=== PATIENT | female | born 1945 | race Caucasian/White ===

== ENCOUNTER 2018-02-21 20:14 | Emergency (ER) | END 2018-02-21 23:30 | disposition home or self-care (01) ==

== ENCOUNTER → 2018-07-14 | Outpatient (CLI) | payer MEDICARE, OTHER ==
[~2018-07-14] MED LIST: ATOR20TA17; CLOP75TA19; DULO60CA6; ERGO50007; GLIM4TAB55; HYDR-3980 PO; IOHEXOL 100 ML ONE; ISOS120T; METO-335; METOPROLOL 100 MG TAB ONE; NITR0.4T28; NITROGLYCERIN AEROSOL (4.9 GM) ONE; NORT25CA; PIOG1TAB9; SOD CHLORIDE 0.9% 100 ML ONE; VALS320T2
[2018-07-14 10:20] VITALS: BP 118/56; PULSE 67; RESP 20
[2018-07-14 11:00] VITALS: BP 148/71; PULSE 64; RESP 18
[2018-07-14 11:15] VITALS: BP 154/70; PULSE 64; RESP 18
== END | disposition home or self-care (01) ==
LOC: C/S 09:49
PROVIDERS: ATTEND Internal Medicine Interventional Cardiology
DX: R94.39 Abnormal result of other cardiovascular function study (principal); R07.9 Chest pain, unspecified
CPT/HCPCS: 75571; 75574; Q9967

== ENCOUNTER 2018-07-23 16:50 | Inpatient (IN) | payer MEDICARE, OTHER ==
[~2018-07-23] VITALS: Ht 154.9 cm; Wt 86.6 kg
[~2018-07-23 16:50] MED LIST changes: -IOHEXOL 100 ML ONE; -METOPROLOL 100 MG TAB ONE; -NITROGLYCERIN AEROSOL (4.9 GM) ONE; -SOD CHLORIDE 0.9% 100 ML ONE
[2018-07-23] MEDS ORDERED: ASPIRIN 325 MG TAB PO STA (17:28)
[2018-07-23] MEDS ORDERED: ONDANSETRON 4 MG INJ IV STA (17:28)
[2018-07-23] MEDS ORDERED: NITROGLYCERIN 2% 1 GM OINT PKT TD STA (17:28)
[2018-07-23] MEDS ORDERED: morphine 4 MG/ML VIAL IV STA (17:28)
[2018-07-23] MEDS ORDERED: NITROGLYCERIN (SL) 0.4 MG TAB SL PRN (17:30)
--- NOTE | 2018-07-23 17:39 | ERD ---
ER Documentation Chief Complaint Chief Complaint chest pain 1.5 hours ago, took nitro 0.4mg sl no relief HPI This is a 72-year-old female with a history of high cholesterol, hypertension diabetes and coronary stents who had substernal chest pressure radiating to both shoulders and back typical of her angina. The patient took some sublingual nitroglycerin at home but no relief. She had mild shortness of breath no palpitations no nausea no diaphoresis. Patient has had a few days of dyspnea on exertion as well. ROS All systems reviewed and are negative except as per history of present illness. Medications Home Meds Reported Medications Glipizide* (Glipizide*) 10 Mg Tablet, 10 MG PO BID 07/23/18 Isosorbide Mononitrate* (Isosorbide Mononitrate*) 30 Mg Tab.er.24h, 30 MG PO DAILY 07/23/18 Doxepin Hcl* (Doxepin Hcl*) 10 Mg Capsule, 10 MG PO DAILY 07/23/18 Mirabegron (Myrbetriq) 50 Mg Tab.er.24h, 50 MG PO DAILY 07/23/18 Sitagliptin Phos/Metformin HCl (Janumet 50-1,000 mg Tablet) 1 Each Tablet, 1 TAB PO DAILY 07/23/18 Pregabalin* (Lyrica*) 100 Mg Capsule, 100 MG PO BID, CAP 07/23/18 Metoprolol Succinate* (Toprol XL*) 200 Mg Tab.sr.24h, 200 MG PO QAM 07/23/18 Insulin Aspart* (Novolog Insulin Pen*) 100 Unit/Ml Soln, 0 SC .SLIDING SCALE AC, EA 07/23/18 Insulin Detemir (Levemir Flextouch) 100 Unit/1 Ml Insuln.pen, 28-35 UNIT SQ BID, EA 07/23/18 Nitroglycerin* (Nitroglycerin* SL) 0.4 Mg Tab.subl, 0.4 MG SL Q5MIN PRN for CHEST PAIN, BOTTLE 07/23/18 Discontinued Reported Medications Isosorbide Mononitrate* (Imdur*) 120 Mg Tab.sr.24h 04/25/09 Glimepiride* (Amaryl*) 4 Mg Tablet 04/25/09 Ergocalciferol (Vitamin D) 50,000 Unit Capsule 04/25/09 Nitroglycerin (Nitroquick) 0.4 Mg Tab.subl 04/25/09 Valsartan* (Diovan*) 320 Mg Tablet 04/25/09 Metoprolol Succinate* (Toprol XL*) 25 Mg Tab.sr.24h 04/25/09 Atorvastatin (Lipitor) 20 Mg Tablet 04/25/09 Clopidogrel Bisulfate (Plavix) 75 Mg Tablet 04/25/09 Nortriptyline Hcl* (Nortriptyline Hcl*) 25 Mg Capsule 04/25/09 Duloxetine Hcl* (Cymbalta*) 60 Mg Capsule. 04/25/09 Pioglitazone Hcl-Metformin Hcl (Actoplus Met) 1 Tab Tablet 04/25/09 Discontinued Scripts Hydrocodone/Acetaminophen ([place] 10-325 Tablet) 1 Each Tablet, 1 TAB PO Q6H PRN for PAIN, #7 TAB Prov:ELZA CALVILLO 02/21/18 Allergies Allergies: Coded Allergies: calcium (Verified Allergy, Mild, ITCHING, 07/23/18) ergocalciferol (vitamin D2) (Verified Allergy, Mild, ITCHING (FROM OS-ENMANUEL WITH VITAMIN D), 07/23/18) cyanocobalamin (vitamin B12) (Verified Allergy, Unknown, 07/23/18) PMhx/Soc History of Surgery: Yes (. HYSTERECTOMY. . TONSILLECTOMY) Anesthesia Reaction: No Hx Neurological Disorder: Yes (ANXIETY, NERVOUSNESS) Hx Respiratory Disorders: No Hx Cardiac Disorders: Yes (CA, htn, cholesterol, stent placement) Hx Psychiatric Problems: No (anxiety) Hx Miscellaneous Medical Probl: Yes (DM) Hx Alcohol Use: No Hx Substance Use: No Hx Tobacco Use: No Smoking Status: Never smoker FmHx Family History: No coronary disease Physical Exam Vitals Vital Signs Date Temp Pulse Resp B/P (MAP) Pulse Ox O2 O2 Flow FiO2 Time Delivery Rate 07/23/18 Nasal 2 17:52 Cannula 07/23/18 99.6 122 18 132/60 98 16:56 (84) Physical Exam Const: Well-developed, well-nourished Head: Atraumatic, normocephalic Eyes: Normal Conjunctiva, PERRLA, EOMI, normal sclera, no nystagmus ENT: Normal External Ears, Nose and Mouth, moist mucus membranes. Neck: Full range of motion. No meningismus, no lymphadenopathy. Resp: Clear to auscultation bilaterally, no wheezing, rhonchi, rales Cardio: Tachycardia heart rate 108 no murmurs, S1 S2 present Abd: Soft, non tender x 4, non distended. Normal bowel sounds, no guarding or rebound, no pulsitile abdominal masses or bruits Skin: No petechiae or rashes, no ecchymosis , no maculopapular rash Back: No midline or flank tenderness Ext: No cyanosis, or edema, FROM x 4, normal inspection, neurovascularly intact x 4 Neur: Awake and alert, STR 5/5 x 4, sensation intact x 4, no focal findings, cerebellum intact Psych: Normal Mood and Affect Result Diagram: 07/23/18 1735 07/23/18 1735 Results 24 hrs Laboratory Tests Test 07/23/18 17:35 White Blood Count 7.2 10^3/ul Red Blood Count 4.99 10^6/ul Hemoglobin 12.5 g/dl Hematocrit 39.1 % Mean Corpuscular Volume 78.4 fl Mean Corpuscular Hemoglobin 25.1 pg Mean Corpuscular Hemoglobin Concent 32.0 g/dl Red Cell Distribution Width 17.3 % Platelet Count 278 10^3/UL Mean Platelet Volume 10.3 fl Immature Granulocytes % 0.300 % Neutrophils % 65.6 % Lymphocytes % 25.8 % Monocytes % 7.1 % Eosinophils % 0.8 % Basophils % 0.4 % Nucleated Red Blood Cells % 0.0 /100WBC Immature Granulocytes # 0.020 10^3/ul Neutrophils # 4.7 10^3/ul Lymphocytes # 1.9 10^3/ul Monocytes # 0.5 10^3/ul Eosinophils # 0.1 10^3/ul Basophils # 0.0 10^3/ul Nucleated Red Blood Cells # 0.0 10^3/ul Prothrombin Time 13.6 Sec Prothrombin Time Ratio 1.1 INR International Normalized Ratio 1.03 Activated Partial Thromboplast Time 25.8 Sec Sodium Level 135 mmol/L Potassium Level 4.1 mmol/L Chloride Level 98 mmol/L Carbon Dioxide Level 23 mmol/L Anion Gap 14 Blood Urea Nitrogen 18 mg/dl Creatinine 0.68 mg/dl Est Glomerular Filtrat Rate mL/min mL/min Glucose Level 384 mg/dl Calcium Level 9.6 mg/dl Total Bilirubin 0.4 mg/dl Direct Bilirubin 0.00 mg/dl Indirect Bilirubin 0.4 mg/dl Aspartate Amino Transf (AST/SGOT) 19 IU/L Alanine Aminotransferase (ALT/SGPT) 11 IU/L Alkaline Phosphatase 104 IU/L Troponin I 0.037 ng/ml B-Type Natriuretic Peptide 1950 PG/ML Total Protein 7.0 g/dl Albumin 3.9 g/dl Globulin 3.10 g/dl Albumin/Globulin Ratio 1.25 Current Medications Medications Dose Sig/Lee Start Time Status Last (Trade) Ordered Route PRN Stop Time Admin Dose Reason Admin Aspirin 325 mg ONCE STAT 07/23/18 DC (Aspirin) PO 17:28 07/23/18 17:31 1 inch ONCE STAT 07/23/18 DC 07/23/18 Nitroglycerin TD 17:28 07/23/18 17:42 17:31 (Nitroglyceri n 2% Oint) 1 tab Q5M UP TO 3 07/23/18 Nitroglycerin DOSES PRN 17:30 SL .CHEST (Nitroglyceri PAIN n (Sl Tab) 0.4 Mg) Morphine 4 mg ONCE STAT 07/23/18 DC 07/23/18 Sulfate IV 17:28 07/23/18 17:42 (morphine) 17:31 Ondansetron 4 mg ONCE STAT 07/23/18 DC 07/23/18 HCl (Zofran IV 17:28 07/23/18 17:42 Inj) 17:31 Procedures/MDM EKG: Rate/Rhythm: Sinus tachycardia heart rate 118, right bundle branch block QRS, ST, QT: NORMAL HI, QRS, QT] Impression: Abnormal EKG MR #: [id number] DOS: 07/23/18 1728 Ordering MD: SHAWNA JARQUIN DO Location: E/R Room/Bed: PROCEDURE: XR Chest. CLINICAL INDICATION: Chest pain. TECHNIQUE: Chest, 1 view. COMPARISON: 04/25/2009. Cardiac CT 07/14/2018. FINDINGS: The cardiomediastinal silhouette is normal in size. No focal consolidation is seen. No pleural effusion is seen. No definite pneumothorax is seen. No acute osseous abnormality. IMPRESSION: No radiographic evidence of an acute cardiopulmonary process. RPTAT: GG Sammy Robertson Physician Date Time Electronically viewed and signed by Sammy Robertson, Physician on 07/23/2018 18:12 PH/ CC: SHAWNA JARQUIN DO [id number] Cardiac Admit MDM: Patient's symptoms are concerning for cardiac cause will require inpatient workup and continuous monitoring. Further w/u for ischemia, arrhythmia, PE or dissection will be deferred to the inpatient team. Departure Diagnosis: Primary Impression: Chest pain Chest pain type: unspecified Qualified Codes: R07.9 - Chest pain, unspecified Condition: Stable SHAWNA JARQUIN DO Jul 23, 2018 17:39
[2018-07-23] MEDS ORDERED: NITR0.4T32 SL (18:22)
[2018-07-23] MEDS ORDERED: INSU100I27 SQ (18:23)
[2018-07-23] MEDS ORDERED: NOVO3I SC (18:26)
[2018-07-23] MEDS ORDERED: LYRI100 PO (18:26)
[2018-07-23] MEDS ORDERED: METO200T49 PO (18:26)
[2018-07-23] MEDS ORDERED: DOXE10CA PO (18:28)
[2018-07-23] MEDS ORDERED: MIRA50TA PO (18:28)
[2018-07-23] MEDS ORDERED: SITA1TAB5 PO (18:28)
[2018-07-23] MEDS ORDERED: GLIP10TA14 PO (18:28)
[2018-07-23] MEDS ORDERED: ISOS30TA67 PO (18:28)
[2018-07-23] MEDS ORDERED: DEXTROSE 50% 50 ML SYRINGE IV PRN ×2 (19:00)
[2018-07-23] MEDS ORDERED: GLUCOSE GEL 15 GRAM TUBE BUCCAL PRN (19:00)
[2018-07-23] MEDS ORDERED: GLUCAGON 1 MG INJ IM PRN (19:00)
[2018-07-23] MEDS ORDERED: OXYCODONE/ACETAMINOPHEN (5/325) TAB PO PRN (19:00)
[2018-07-23] MEDS ORDERED: NACL 0.9% 3 ML SYG IV SCH (19:00)
[2018-07-23] MEDS ORDERED: GLUCOSE GEL 15 GRAM TUBE PO PRN ×2 (19:00)
--- NOTE | 2018-07-23 19:40 | HP ---
Date/Time of Note Date/Time of Note DATE: 07/23/18 TIME: 19:30 Assessment/Plan VTE Prophylaxis Pharmacological prophylaxis: heparin Lines/Catheters IV Catheter Type (from Nrsg): Saline Lock Assessment/Plan Hospital Course 72 yo female with known CAD, stent 10 years ago, DMII, hypertension presenting with chest pain Chest pain syndrome: - Concerning for ACS in patient with known coronary disease. Initial troponin negaitve. EKG not consistent with STEMI but does show TWI - Will cycle troponins overnight - XR is clear but has obvious JVD/HJR on exam concerning for R sided CHF. Await TTE - D-dimer is below threshold so we can exclude PE. No respiratory symptoms or hypoxia regardless - Can consider stress test, we know her anatomy from recent CT-A - Continue isosorbide, toprol - TTE DMII with hyperglycemia: - Basal/bolus insulin Discharge following cardiac workup Result Diagram: 07/23/18 1735 07/23/18 1735 Results 24hrs Laboratory Tests Test 07/23/18 17:35 White Blood Count 7.2 Red Blood Count 4.99 Hemoglobin 12.5 Hematocrit 39.1 Mean Corpuscular Volume 78.4 L Mean Corpuscular Hemoglobin 25.1 L Mean Corpuscular Hemoglobin Concent 32.0 Red Cell Distribution Width 17.3 H Platelet Count 278 Mean Platelet Volume 10.3 Immature Granulocytes % 0.300 Neutrophils % 65.6 Lymphocytes % 25.8 Monocytes % 7.1 Eosinophils % 0.8 Basophils % 0.4 Nucleated Red Blood Cells % 0.0 Immature Granulocytes # 0.020 Neutrophils # 4.7 Lymphocytes # 1.9 Monocytes # 0.5 Eosinophils # 0.1 Basophils # 0.0 Nucleated Red Blood Cells # 0.0 Prothrombin Time 13.6 Prothrombin Time Ratio 1.1 INR International Normalized Ratio 1.03 Activated Partial Thromboplast Time 25.8 D-Dimer 461.39 H D-Dimer Comment Sodium Level 135 Potassium Level 4.1 Chloride Level 98 Carbon Dioxide Level 23 Anion Gap 14 H Blood Urea Nitrogen 18 Creatinine 0.68 Est Glomerular Filtrat Rate mL/min Glucose Level 384 H Calcium Level 9.6 Total Bilirubin 0.4 Direct Bilirubin 0.00 Indirect Bilirubin 0.4 Aspartate Amino Transf (AST/SGOT) 19 Alanine Aminotransferase (ALT/SGPT) 11 L Alkaline Phosphatase 104 Troponin I 0.037 B-Type Natriuretic Peptide 1950 H Total Protein 7.0 Albumin 3.9 Globulin 3.10 Albumin/Globulin Ratio 1.25 HPI/ROS Admit Date/Time Admit Date/Time Hx of Present Illness 72 yo female with h/o CAD, DMII who presents with CP Patient in usual state of health until today. Since about 7 AM she has had substernal chest pressure, radiating to her arms. She took nitroglycerin at home without relief. Had some nausea as well. Came to ED. Here pain relieved with morphine. Denies shortness of breath. Does feel more swollen than usual, mild orthopnea. She had a CT-A last year showing: Total calcium score: 1557 RCA: Noncalcified plaque in the proximal segment of the vessel produces 50% stenosis. LM: Small plaques do not produce any focal stenosis. LAD: Degraded visualization of the proximal segment due to premature contraction; calcified plaques are present which produce an indeterminate degree of stenosis. Mild - moderate irregularities of the mid and distal segments. LCX: Small plaques in the proximal segment of vessel produce less than 20% stenosis. Mixed plaque in the midsegment of the vessel producing greater than 70% stenosis with distal reference segment of 1.0 mm. OMs: Moderate - severe irregularities of these small caliber vessels measuring less than 1.0 mm. Thickening calcifications of the aortic valve. Recommend echocardiography to exclude aortic stenosis. PMH/Family/Social Past Medical History Medical History: no pertinent history, angina Medications Current Medications Nitroglycerin (Nitroglycerin (Sl Tab) 0.4 Mg) 1 tab Q5M UP TO 3 DOSES PRN SL .CHEST PAIN; Start 07/23/18 at 17:30 IV Flush (NS 3 ml) 3 ml PER PROTOCOL IV ; Start 07/23/18 at 19:00 Oxycodone/ Acetaminophen (Percocet (5/ 325)) 2 tab Q6H PRN PO .SEVERE PAIN 7- 10; Start 07/23/18 at 19:00 Enoxaparin Sodium (Lovenox) 30 mg DAILY SC ; Start 07/24/18 at 09:00 Insulin Glargine (Lantus) 21 units DAILY@2000 SC ; Start 07/23/18 at 20:00 Insulin Aspart (Novolog Insulin Pen) 6 unit WITH MEALS SC ; Start 07/24/18 at 08:00 Insulin Aspart (Novolog Insulin Pen) NOVOLOG *MODERATE* ALGORITHM WITH MEALS BEDTIME SC ; Start 07/23/18 at 21:00 Doxepin HCl (Sinequan) 10 mg DAILY PO ; Start 07/24/18 at 09:00 Isosorbide Mononitrate (Imdur) 30 mg DAILY PO ; Start 07/24/18 at 09:00 Metoprolol Succinate (Toprol Xl) 200 mg QAM PO ; Start 07/24/18 at 09:00 Pregabalin (Lyrica) 100 mg BID PO ; Start 07/23/18 at 21:00 Miscellaneous Information 1 ea NOTE XX ; Start 07/23/18 at 19:00 Glucose (Glutose) 15 gm Q15M PRN PO DECREASED GLUCOSE; Start 07/23/18 at 19:00 Glucose (Glutose) 22.5 gm Q15M PRN PO DECREASED GLUCOSE; Start 07/23/18 at 19:00 Dextrose (D50w Syringe) 25 ml Q15M PRN IV DECREASED GLUCOSE; Start 07/23/18 at 19:00 Dextrose (D50w Syringe) 50 ml Q15M PRN IV DECREASED GLUCOSE; Start 07/23/18 at 19:00 Glucagon (Glucagen) 1 mg Q15M PRN IM DECREASED GLUCOSE; Start 07/23/18 at 19:00 Glucose (Glutose) 15 gm Q15M PRN BUCCAL DECREASED GLUCOSE; Start 07/23/18 at 19 :00 Coded Allergies: calcium (Verified Allergy, Mild, ITCHING, 07/23/18) ergocalciferol (vitamin D2) (Verified Allergy, Mild, ITCHING (FROM OS-ENMANUEL WITH VITAMIN D), 07/23/18) cyanocobalamin (vitamin B12) (Verified Allergy, Unknown, 07/23/18) Past Surgical History Past Surgical Hx: no surgical history Family History Significant Family History: no pertinent family hx Social History Alcohol Use: none Smoking Status: Never smoker Drug Use: none Exam/Review of Systems Vital Signs Vitals Vital Signs Date Temp Pulse Resp B/P (MAP) Pulse Ox O2 O2 Flow FiO2 Time Delivery Rate 07/23/18 105 18 152/72 100 Room Air 18:51 (98) 07/23/18 2 17:52 07/23/18 99.6 16:56 Exam Exam Appears a bit anxious but comfortable and in no distress A0X3 + JVD, + HJR Tachy, regular Lungs clear Abdomen sfot nt No peripheral edema JOHNATHAN BARBA MD Jul 23, 2018 19:40
[2018-07-23] MEDS ORDERED: ONDANSETRON 4 MG INJ IV PRN (20:00)
[2018-07-23] MEDS ORDERED: INSULIN GLARGINE [LANTus] (100 UNITS/ML) SYG SC SCH (20:00)
[2018-07-23] MEDS ORDERED: ACETAMINOPHEN 325 MG TAB PO PRN (20:00)
[2018-07-23] MEDS: INSULIN ASPART [NOVOLOG] 3 ML PEN SC SCH (21:00)
[2018-07-23] MEDS: ATORVASTATIN 80 MG TAB PO SCH (21:00)
[2018-07-24] VITALS (10 sets, daily range): BP systolic 100–169; BP diastolic 52–76; PULSE 66–101; RESP 16–19; Ht 154.9 cm; Wt 86.6 kg
[2018-07-24] MEDS: PREGABALIN 100 MG CAP PO SCH ×3 (03:02→21:28)
[2018-07-24] MEDS: ISOSORBIDE MONONITRATE(SR)30 MG TAB PO SCH (08:44)
[2018-07-24] MEDS: METOPROLOL (XL) 100 MG TAB PO SCH (08:45)
[2018-07-24] MEDS: ASPIRIN 81 MG TAB PO SCH (08:45)
[2018-07-24] MEDS: INSULIN ASPART [NOVOLOG] 3 ML PEN SC SCH ×7 (08:53→21:00)
[2018-07-24] MEDS ORDERED: ENOXAPARIN 30 MG/0.3 ML SYG SC SCH (09:00)
[2018-07-24] MEDS: DOXEPIN 10 MG CAP PO SCH (11:19)
[2018-07-24] MEDS ORDERED: HEPARIN 25000 UNITS/250 ML 250 ML IV SCH (13:00)
[2018-07-24] MEDS: HEPARIN 1000 UNITS/ML 10 ML INJ IV PRN (13:32)
--- NOTE | 2018-07-24 15:18 | PN ---
Date/Time of Note Date/Time of Note DATE: 07/24/18 TIME: 15:16 Assessment/Plan VTE Prophylaxis Risk score (from Nsg)>0 risk: 4 SCD applied (from Nsg): Yes Pharmacological prophylaxis: heparin Lines/Catheters IV Catheter Type (from Nrsg): Saline Lock Assessment/Plan Hospital Course 72 yo female with known CAD, stent 10 years ago, DMII, hypertension presenting with chest pain, found to have NSTEMI NSTEMI: - Troponin came back elevated - Continue aspirin and heparin drip, atorva 80 - Dr Zendejas consulted for consideration of [facility] - Continue isosorbide, toprol - TTE DMII with hyperglycemia: - Sugars remain quite elevated. Will increase dosing of basal/bolus insulin Discharge to self care following cardiac management Result Diagram: 07/24/18 1252 07/24/18 0515 Results 24hrs Laboratory Tests Test 07/23/18 17:35 07/23/18 20:36 07/23/18 22:00 07/24/18 01:59 White Blood Count 7.2 Red Blood Count 4.99 Hemoglobin 12.5 Hematocrit 39.1 Mean Corpuscular 78.4 L Volume Mean Corpuscular 25.1 L Hemoglobin Mean Corpuscular 32.0 Hemoglobin Concent Red Cell 17.3 H Distribution Width Platelet Count 278 Mean Platelet Volume 10.3 Immature 0.300 Granulocytes % Neutrophils % 65.6 Lymphocytes % 25.8 Monocytes % 7.1 Eosinophils % 0.8 Basophils % 0.4 Nucleated Red Blood 0.0 Cells % Immature 0.020 Granulocytes # Neutrophils # 4.7 Lymphocytes # 1.9 Monocytes # 0.5 Eosinophils # 0.1 Basophils # 0.0 Nucleated Red Blood 0.0 Cells # Prothrombin Time 13.6 Prothrombin Time 1.1 Ratio INR International 1.03 Normalized Ratio Activated 25.8 Partial Thromboplast Time D-Dimer 461.39 H D-Dimer Comment Sodium Level 135 Potassium Level 4.1 Chloride Level 98 Carbon Dioxide Level 23 Anion Gap 14 H Blood Urea Nitrogen 18 Creatinine 0.68 Est Glomerular Filtrat Rate mL/min Glucose Level 384 H Calcium Level 9.6 Total Bilirubin 0.4 Direct Bilirubin 0.00 Indirect Bilirubin 0.4 Aspartate Amino 19 Transf (AST/SGOT) Alanine 11 L Aminotransferase (AL T/SGPT) Alkaline Phosphatase 104 Troponin I 0.037 0.275 *H B-Type Natriuretic 1950 H Peptide Total Protein 7.0 Albumin 3.9 Globulin 3.10 Albumin/Globulin 1.25 Ratio Bedside Glucose 240 H 299 H Test 07/24/18 05:15 07/24/18 08:43 07/24/18 12:11 07/24/18 12:52 White Blood Count 5.6 # 7.3 # Red Blood Count 4.46 4.62 Hemoglobin 11.4 L 11.7 L Hematocrit 35.3 L 37.1 Mean Corpuscular 79.1 L 80.3 L Volume Mean Corpuscular 25.6 L 25.3 L Hemoglobin Mean Corpuscular 32.3 31.5 L Hemoglobin Concent Red Cell 17.5 H 17.8 H Distribution Width Platelet Count 205 # 300 # Mean Platelet Volume 10.4 10.5 H Immature 0.200 0.300 Granulocytes % Neutrophils % 51.0 58.6 Lymphocytes % 39.0 32.1 Monocytes % 7.2 6.2 Eosinophils % 2.2 2.2 Basophils % 0.4 0.6 Nucleated Red Blood 0.0 0.0 Cells % Immature 0.010 0.020 Granulocytes # Neutrophils # 2.8 4.3 Lymphocytes # 2.2 2.3 Monocytes # 0.4 0.5 Eosinophils # 0.1 0.2 Basophils # 0.0 0.0 Nucleated Red Blood 0.0 0.0 Cells # Sodium Level 138 Potassium Level 4.1 Chloride Level 101 Carbon Dioxide Level 29 Anion Gap 8 Blood Urea Nitrogen 20 Creatinine 0.69 Est Glomerular Filtrat Rate mL/min Glucose Level 290 H Hemoglobin A1c 14.0 H Calcium Level 9.3 Total Bilirubin 0.3 Direct Bilirubin 0.00 Indirect Bilirubin 0.3 Aspartate Amino 26 Transf (AST/SGOT) Alanine 15 Aminotransferase (AL T/SGPT) Alkaline Phosphatase 83 Troponin I 0.490 *H Total Protein 5.9 #L Albumin 3.2 L Globulin 2.70 Albumin/Globulin 1.18 Ratio Bedside Glucose 289 H 193 Prothrombin Time 13.3 Prothrombin Time 1.0 Ratio INR International 1.00 Normalized Ratio Activated 25.6 Partial Thromboplast Time Subjective 24 Hr Interval Summary Free Text/Dictation Troponin is positive, started on heparin drip Her chest symptoms have resolved Exam/Review of Systems Exam Vitals Vital Signs Date Temp Pulse Resp B/P (MAP) Pulse Ox O2 O2 Flow FiO2 Time Delivery Rate 07/24/18 88 12:34 07/24/18 98.5 17 100/55 98 11:54 (70) 07/24/18 Room Air 00:11 07/23/18 2 17:52 Intake and Output 07/23/18 07/23/18 07/24/18 1515:00 23:00 07:00 IntakeIntake Total 400 ml BalanceBalance 400 ml Constitutional: alert, oriented, well developed Psych: no complaints, nl mood/affect Head: normocephalic, atraumatic Eyes: nl conjunctiva, EOMI, nl lids, nl sclera, PERRL ENMT: nl external ears & nose, nl lips & teeth, nl nasal mucosa & septum Neck: supple, non-tender Respiratory: clear to auscultation, normal air movement Cardiovascular: regular rate and rhythm, nl pulses Gastrointestinal: soft, nl liver, spleen, non-tender Musculoskeletal: nl extremities to inspection, nl gait and stance Extremities: normal pulses Neurological: [employer] II-XII intact, nl mental status, nl speech, nl strength Skin: nl turgor; No rash or lesions Lymph: nl lymph nodes Results Results 24hrs Laboratory Tests Test 07/23/18 17:35 07/23/18 20:36 07/23/18 22:00 07/24/18 01:59 White Blood Count 7.2 Red Blood Count 4.99 Hemoglobin 12.5 Hematocrit 39.1 Mean Corpuscular 78.4 L Volume Mean Corpuscular 25.1 L Hemoglobin Mean Corpuscular 32.0 Hemoglobin Concent Red Cell 17.3 H Distribution Width Platelet Count 278 Mean Platelet Volume 10.3 Immature 0.300 Granulocytes % Neutrophils % 65.6 Lymphocytes % 25.8 Monocytes % 7.1 Eosinophils % 0.8 Basophils % 0.4 Nucleated Red Blood 0.0 Cells % Immature 0.020 Granulocytes # Neutrophils # 4.7 Lymphocytes # 1.9 Monocytes # 0.5 Eosinophils # 0.1 Basophils # 0.0 Nucleated Red Blood 0.0 Cells # Prothrombin Time 13.6 Prothrombin Time 1.1 Ratio INR International 1.03 Normalized Ratio Activated 25.8 Partial Thromboplast Time D-Dimer 461.39 H D-Dimer Comment Sodium Level 135 Potassium Level 4.1 Chloride Level 98 Carbon Dioxide Level 23 Anion Gap 14 H Blood Urea Nitrogen 18 Creatinine 0.68 Est Glomerular Filtrat Rate mL/min Glucose Level 384 H Calcium Level 9.6 Total Bilirubin 0.4 Direct Bilirubin 0.00 Indirect Bilirubin 0.4 Aspartate Amino 19 Transf (AST/SGOT) Alanine 11 L Aminotransferase (AL T/SGPT) Alkaline Phosphatase 104 Troponin I 0.037 0.275 *H B-Type Natriuretic 1950 H Peptide Total Protein 7.0 Albumin 3.9 Globulin 3.10 Albumin/Globulin 1.25 Ratio Bedside Glucose 240 H 299 H Test 07/24/18 05:15 07/24/18 08:43 07/24/18 12:11 07/24/18 12:52 White Blood Count 5.6 # 7.3 # Red Blood Count 4.46 4.62 Hemoglobin 11.4 L 11.7 L Hematocrit 35.3 L 37.1 Mean Corpuscular 79.1 L 80.3 L Volume Mean Corpuscular 25.6 L 25.3 L Hemoglobin Mean Corpuscular 32.3 31.5 L Hemoglobin Concent Red Cell 17.5 H 17.8 H Distribution Width Platelet Count 205 # 300 # Mean Platelet Volume 10.4 10.5 H Immature 0.200 0.300 Granulocytes % Neutrophils % 51.0 58.6 Lymphocytes % 39.0 32.1 Monocytes % 7.2 6.2 Eosinophils % 2.2 2.2 Basophils % 0.4 0.6 Nucleated Red Blood 0.0 0.0 Cells % Immature 0.010 0.020 Granulocytes # Neutrophils # 2.8 4.3 Lymphocytes # 2.2 2.3 Monocytes # 0.4 0.5 Eosinophils # 0.1 0.2 Basophils # 0.0 0.0 Nucleated Red Blood 0.0 0.0 Cells # Sodium Level 138 Potassium Level 4.1 Chloride Level 101 Carbon Dioxide Level 29 Anion Gap 8 Blood Urea Nitrogen 20 Creatinine 0.69 Est Glomerular Filtrat Rate mL/min Glucose Level 290 H Hemoglobin A1c 14.0 H Calcium Level 9.3 Total Bilirubin 0.3 Direct Bilirubin 0.00 Indirect Bilirubin 0.3 Aspartate Amino 26 Transf (AST/SGOT) Alanine 15 Aminotransferase (AL T/SGPT) Alkaline Phosphatase 83 Troponin I 0.490 *H Total Protein 5.9 #L Albumin 3.2 L Globulin 2.70 Albumin/Globulin 1.18 Ratio Bedside Glucose 289 H 193 Prothrombin Time 13.3 Prothrombin Time 1.0 Ratio INR International 1.00 Normalized Ratio Activated 25.6 Partial Thromboplast Time Medications Medication Current Medications Nitroglycerin (Nitroglycerin (Sl Tab) 0.4 Mg) 1 tab Q5M UP TO 3 DOSES PRN SL .CHEST PAIN; Start 07/23/18 at 17:30 IV Flush (NS 3 ml) 3 ml PER PROTOCOL IV ; Start 07/23/18 at 19:00 Oxycodone/ Acetaminophen (Percocet (5/ 325)) 2 tab Q6H PRN PO .SEVERE PAIN 7-10 Last administered on 07/24/18at 11:45; Admin Dose 2 TAB; Start 07/23/18 at 19:00 Insulin Glargine (Lantus) 21 units DAILY@2000 SC Last administered on 07/23/18 20:39; Admin Dose 21 UNITS; Start 07/23/18 at 20:00 Insulin Aspart (Novolog Insulin Pen) 6 unit WITH MEALS SC Last administered on 07/24/18 12:18; Admin Dose 6 UNIT; Start 07/24/18 at 07:55 Insulin Aspart (Novolog Insulin Pen) NOVOLOG *MODERATE* ALGORITHM WITH MEALS BEDTIME SC Last administered on 07/24/18 12:19; Admin Dose 4 UNIT; Start 07/23/18 at 21:00 Doxepin HCl (Sinequan) 10 mg DAILY PO Last administered on 07/24/18 11:19; Admin Dose 10 MG; Start 07/24/18 at 09:00 Isosorbide Mononitrate (Imdur) 30 mg DAILY PO Last administered on 07/24/18at 08:44; Admin Dose 30 MG; Start 07/24/18 at 09:00 Metoprolol Succinate (Toprol Xl) 200 mg QAM PO Last administered on 07/24/18at 08:45; Admin Dose 200 MG; Start 07/24/18 at 09:00 Pregabalin (Lyrica) 100 mg BID PO Last administered on 07/24/18 08:46; Admin Dose 100 MG; Start 07/23/18 at 21:00 Miscellaneous Information 1 ea NOTE XX ; Start 07/23/18 at 19:00 Glucose (Glutose) 15 gm Q15M PRN PO DECREASED GLUCOSE; Start 07/23/18 at 19:00 Glucose (Glutose) 22.5 gm Q15M PRN PO DECREASED GLUCOSE; Start 07/23/18 at 19:00 Dextrose (D50w Syringe) 25 ml Q15M PRN IV DECREASED GLUCOSE; Start 07/23/18 at 1 9:00 Dextrose (D50w Syringe) 50 ml Q15M PRN IV DECREASED GLUCOSE; Start 07/23/18 at 19:00 Glucagon (Glucagen) 1 mg Q15M PRN IM DECREASED GLUCOSE; Start 07/23/18 at 19:00 Glucose (Glutose) 15 gm Q15M PRN BUCCAL DECREASED GLUCOSE; Start 07/23/18 at 19:00 Aspirin (Aspirin) 81 mg DAILY PO Last administered on 07/24/18at 08:45; Admin Dose 81 MG; Start 07/24/18 at 09:00 Atorvastatin Calcium (Lipitor) 80 mg HS PO ; Start 07/23/18 at 21:00 Heparin Sodium (Porcine) (Heparin (1000 Units/ml)) 4,000 unit PER PROTOCOL PRN IV aPTT<47 Last administered on 07/24/18at 13:32; Admin Dose 4,000 UNIT; Start 07/24/18 at 13:00 Heparin Sodium (Porcine) 250 ml @ 10 mls/hr PER PROTOCOL IV Last administered on 07/24/18at 13:35; Admin Dose 10 MLS/HR; Start 07/24/18 at 13:00 JOHNATHAN BARBA MD Jul 24, 2018 15:18
--- NOTE | 2018-07-24 18:30 | RADRPT ---
Echocardiogram Report Patient Name: Ruba SIFUENTEStient ID: [id number] : 1945 (72y 9m)Study Date: 07/24/2018 9:05:01 AM Gender: FAccession #: [id number] Tech: ARY Location: Ref.Physician: JOHNATHAN BARBA Height(Cm): BSA: Weight(Kg): Quality: Technically Difficult StudyAccount #: Procedures: Echocardiographic Report: Transthoracic echocardiogram with complete 2D, M-Mode, and doppler examination. Indications: Congestive Heart Failure. Measurements: 2D/M Mode Doppler Measurement Value Normal Range Measurement Value Normal Range LVIDd 2D 4.7 [ 3.8 - 5.2 ] cm AREN Vmax 1.3 [ 2.0 - 4.0 ] cm2 LVIDs 2D 3.3 [ 2.2 - 3.5 ] cm AREN VTI 1.4 [ 2.0 - 4.0 ] cm2 LVPWd 2D 1.4 [ 0.6 - 0.9 ] cm AV Mean Dav 1.4 [ 70.0 - 90.0 ] cm/sec IVSd 2D 1.4 [ 0.6 - 0.9 ] cm AV Mean PG 9.0 [ 2.0 - 4.0 ] mmHg IVS/LVPW 2D 1.0 ratio AV Peak Dav 1.9 [ 100.0 - 170.0 ] cm/sec LVOT Diam 1.8 [ 2.1 - 2.5 ] cm AV Peak PG 14.0 [ 2.0 - 9.0 ] mmHg LVOT Area 2.5 cm2 AV VTI 31.6 cm LVOT Mean Dav 0.8 [ 60.0 - 80.0 ] cm/sec LVOT Mean PG 3.0 [ 1.0 - 3.0 ] mmHg LVOT Peak Dav 1.0 [ 70.0 - 110.0 ] cm/sec LVOT Peak PG 4.0 [ 2.0 - 6.0 ] mmHg LVOT VTI 17.1 [ 20.0 - 30.0 ] cm MV E Peak Dav 0.7 [ 60.0 - 130.0 ] cm/sec MV A Peak Dav 1.3 [ 100.0 - 120.0 ] cm/sec MV E/A 0.5 [ 0.8 - 1.5 ] ratio MV Decel Time 211 [ 104 - 258 ] msec Lat E` Dav 0.0 [ 10.0 - 15.0 ] cm/sec Med E` Dav 0.0 cm/sec MV E/A 0.5 [ 0.8 - 1.5 ] ratio PV Peak Dav 0.9 [ 40.0 - 80.0 ] cm/sec PV Peak PG 3.0 mmHg Findings: Left Ventricle: Normal left ventricular systolic function. Normal left ventricular cavity size. Mild-moderate concentric left ventricular hypertrophy. Ejection fraction is visually estimated at 60-65 %. Tissue Doppler/Mitral Doppler indices are consistent with impaired relaxation (Stage I diastolic dysfunction). Right Ventricle: Normal right ventricular size. Normal right ventricular systolic function. Left Atrium: There is mild enlargement of left atrium. Right Atrium: The right atrium is normal in size. Mitral Valve: Normal appearance of the mitral valve. Mild mitral leaflet calcification. Mild mitral annular calcification. There is trace to mild mitral valve regurgitation. Aortic Valve: Aortic valve not well visualized. Aortic sclerosis without significant stenosis. Aortic cusps appear mildly calcified. Trace aortic valve regurgitation. Tricuspid Valve: Normal appearance and function of the tricuspid valve with trace physiologic regurgitation. Pulmonic Valve: Pulmonic valve not well visualized. Pericardium: Normal pericardium with no significant pericardial effusion. Aorta: Normal aortic root. IVC: Normal size and normal respiratory collapse consistent with normal right atrial pressure. Conclusions: Normal left ventricular systolic function. Normal left ventricular cavity size. Mild-moderate concentric left ventricular hypertrophy. Ejection fraction is visually estimated at 60-65 %. Tissue Doppler/Mitral Doppler indices are consistent with impaired relaxation (Stage I diastolic dysfunction). There is mild enlargement of left atrium. Normal appearance of the mitral valve. Mild mitral leaflet calcification. Mild mitral annular calcification. There is trace to mild mitral valve regurgitation. Aortic valve not well visualized. Aortic sclerosis without significant stenosis by gradient asessment. Aortic cusps appear mildly calcified. Trace aortic valve regurgitation. Normal appearance and function of the tricuspid valve with trace physiologic regurgitation. Electronically Signed By: Ad Zendejas 2018-07-24 18:29:12 PDT
[2018-07-24] MEDS ORDERED: INSULIN GLARGINE [LANTus] (100 UNITS/ML) SYG SC SCH (20:00)
[2018-07-24] MEDS: ATORVASTATIN 80 MG TAB PO SCH (21:28)
[2018-07-25] VITALS (20 sets, daily range): BP systolic 122–170; BP diastolic 44–94; PULSE 69–89; RESP 16–18
[2018-07-25] MEDS ORDERED: DIAZEPAM 5 MG TAB PO ONE (07:00)
[2018-07-25] MEDS ORDERED: DIPHENHYDRAMINE 50 MG CAP PO ONE (07:00)
[2018-07-25] MEDS: HEPARIN 1000 UNITS/ML 10 ML INJ IV PRN (07:14)
[2018-07-25] MEDS: INSULIN ASPART [NOVOLOG] 3 ML PEN SC SCH ×7 (07:55→20:45)
[2018-07-25] MEDS: PREGABALIN 100 MG CAP PO SCH ×3 (07:57→20:36)
[2018-07-25] MEDS: METOPROLOL (XL) 100 MG TAB PO SCH ×2 (07:57→11:04)
[2018-07-25] MEDS: ASPIRIN 81 MG TAB PO SCH ×3 (07:58→11:09)
[2018-07-25] MEDS: DOXEPIN 10 MG CAP PO SCH ×2 (07:58→11:04)
[2018-07-25] MEDS: ISOSORBIDE MONONITRATE(SR)30 MG TAB PO SCH ×2 (07:58→11:05)
[2018-07-25] MEDS ORDERED: HEPARIN 1000 UNITS/ML 10 ML INJ ONE (09:26)
[2018-07-25] MEDS ORDERED: MIDAZOLAM 1 MG/ML 2 ML INJ ONE (09:26)
[2018-07-25] MEDS ORDERED: LIDOCAINE 1% (MDV) 20 ML INJ ONE (09:26)
[2018-07-25] MEDS ORDERED: IODIXANOL LOCM 100 ML BTL ONE (09:26)
[2018-07-25] MEDS ORDERED: FENTAnyl 50 MCG/ML VIAL ONE (09:27)
[2018-07-25] MEDS ORDERED: VERAPAMIL 5 MG INJ ONE (09:27)
[2018-07-25] MEDS ORDERED: NITROGLYCERIN (IC) 100 MCG/ML INJ ONE (10:04)
[2018-07-25] MEDS ORDERED: SOD CHLORIDE 0.9% 1,000 ML IV SCH (10:39)
--- NOTE | 2018-07-25 10:45 | SIPON ---
Date/Time of Note Date/Time of Note DATE: 07/25/18 TIME: 10:44 Operative Report Preoperative Diagnosis 1.Nstemi Postoperative Diagnosis 1.obstructive cad multivessel Operation/Procedure Performed 1.[facility] Surgeon see signature line title i instructional assistant 1.Albert Anesthesia: moderate sedation Estimated blood loss: minimal Transfusion Required none Specimen none Grafts/Implants none Complications none CRISTINA RAUSCH Jul 25, 2018 10:45
[2018-07-25] MEDS ORDERED: ONDANSETRON 4 MG INJ IV PRN (11:00)
[2018-07-25] MEDS ORDERED: AL HYDROX/MG HYDROX/SIMETH 30 ML CUP PO PRN (11:00)
--- NOTE | 2018-07-25 14:16 | CONS ---
Assessment/Plan Assessment/Plan Hospital Course (Demo Recall) IMP: 1.Nstemi-s/p C today with multivessel obstructive cad. Echo this admit with NL EF and no sig vakle abnl 2.Chest pain-secondary to number 1 3.HTN 4.HL 5.DM Recc: -Tele-serial ecg's -Continue BB/ASA/statin -Continue imdur -Will have CT surgical consult for consideration of cabg versus multivessel stenting Consultation Date/Type/Reason Admit Date/Time Jul 25, 2018 at 06:38 Initial Consult Date 07/25/18 Type of Consult Cardiology Reason for Consultation Nstemi Requesting Provider: JOHNATHAN BARBA MD Date/Time of Note DATE: 07/25/18 TIME: 14:13 Exam/Review of Systems Vital Signs Vitals Vital Signs Date Temp Pulse Resp B/P (MAP) Pulse Ox O2 O2 Flow FiO2 Time Delivery Rate 07/25/18 77 18 159/56 98 Room Air 13:54 (90) 07/25/18 98.5 10:50 07/23/18 2 17:52 Intake and Output 07/24/18 07/24/18 07/25/18 1414:59 22:59 06:59 IntakeIntake Total 500 ml 500 ml BalanceBalance 500 ml 500 ml Exam Exam Review of Systems: CONSTITUTIONAL: No fevers, chills. PULMONARY: No sob CARDIOVASCULAR:intermittent chest pain GASTROINTESTINAL: No nausea/vomiting. GENITOURINARY: No hematuria/dysuria. MUSCULOSKELETAL: No myagias/arthalgias. PSYCHIATRIC: The patient denies depression. NEUROLOGIC: No weakness Constitutional: alert Psych: no complaints Head: normocephalic ENMT: mucosa pink and moist Neck: supple, jvd (9 cm water) Respiratory: diminished breath sounds Cardiovascular: regular rate and rhythm Gastrointestinal: soft, non-tender Musculoskeletal: muscle tone (normal) Extremities: edema (none) Neurological: other (No focal deficits) Labs Result Diagram: 07/25/18 0548 07/25/18 0548 Results 24hrs Laboratory Tests Test 07/24/18 17:08 07/24/18 19:03 07/24/18 19:06 07/24/18 21:24 Bedside Glucose 198 142 Activated 52.6 H Partial Thromboplast Time Prothrombin Time 14.1 Prothrombin Time 1.1 Ratio INR International 1.08 Normalized Ratio Test 07/25/18 05:48 07/25/18 07:53 07/25/18 11:13 White Blood Count 6.9 Red Blood Count 4.67 Hemoglobin 11.7 L Hematocrit 37.9 Mean Corpuscular 81.2 L Volume Mean Corpuscular 25.1 L Hemoglobin Mean Corpuscular 30.9 L Hemoglobin Concent Red Cell 17.5 H Distribution Width Platelet Count 252 Mean Platelet Volume 10.4 Immature 0.300 Granulocytes % Neutrophils % 53.6 Lymphocytes % 36.6 Monocytes % 6.0 Eosinophils % 2.8 Basophils % 0.7 Nucleated Red Blood 0.0 Cells % Immature 0.020 Granulocytes # Neutrophils # 3.7 Lymphocytes # 2.5 Monocytes # 0.4 Eosinophils # 0.2 Basophils # 0.1 Nucleated Red Blood 0.0 Cells # Prothrombin Time 13.1 Prothrombin Time 1.0 Ratio INR International 0.98 Normalized Ratio Activated 31.1 Partial Thromboplast Time Sodium Level 135 Potassium Level 4.5 Chloride Level 100 Carbon Dioxide Level 25 Anion Gap 10 Blood Urea Nitrogen 30 H Creatinine 0.75 Est Glomerular Filtrat Rate mL/min Glucose Level 356 H Calcium Level 9.4 Triglycerides Level 237 H Bedside Glucose 370 H 302 H Medications Medications Current Medications Nitroglycerin (Nitroglycerin (Sl Tab) 0.4 Mg) 1 tab Q5M UP TO 3 DOSES PRN SL .CHEST PAIN; Start 07/23/18 at 17:30 IV Flush (NS 3 ml) 3 ml PER PROTOCOL IV ; Start 07/23/18 at 19:00 Oxycodone/ Acetaminophen (Percocet (5/ 325)) 2 tab Q6H PRN PO .SEVERE PAIN 7-10 Last administered on 07/24/18at 11:45; Admin Dose 2 TAB; Start 07/23/18 at 19:00 Insulin Aspart (Novolog Insulin Pen) NOVOLOG *MODERATE* ALGORITHM WITH MEALS BEDTIME SC Last administered on 07/25/18at 11:28; Admin Dose 10 UNIT; Start 07/23/18 at 21:00 Doxepin HCl (Sinequan) 10 mg DAILY PO Last administered on 07/25/18 11:04; Admin Dose 10 MG; Start 07/24/18 at 09:00 Isosorbide Mononitrate (Imdur) 30 mg DAILY PO Last administered on 07/25/18at 11:05; Admin Dose 30 MG; Start 07/24/18 at 09:00 Metoprolol Succinate (Toprol Xl) 200 mg QAM PO Last administered on 07/25/18at 11:04; Admin Dose 200 MG; Start 07/24/18 at 09:00 Pregabalin (Lyrica) 100 mg BID PO Last administered on 07/25/18 11:06; Admin Dose 100 MG; Start 07/23/18 at 21:00 Miscellaneous Information 1 ea NOTE XX ; Start 07/23/18 at 19:00 Glucose (Glutose) 15 gm Q15M PRN PO DECREASED GLUCOSE; Start 07/23/18 at 19:00 Glucose (Glutose) 22.5 gm Q15M PRN PO DECREASED GLUCOSE; Start 07/23/18 at 19:00 Dextrose (D50w Syringe) 25 ml Q15M PRN IV DECREASED GLUCOSE; Start 07/23/18 at 19:00 Dextrose (D50w Syringe) 50 ml Q15M PRN IV DECREASED GLUCOSE; Start 07/23/18 at 19:00 Glucagon (Glucagen) 1 mg Q15M PRN IM DECREASED GLUCOSE; Start 07/23/18 at 19:00 Glucose (Glutose) 15 gm Q15M PRN BUCCAL DECREASED GLUCOSE; Start 07/23/18 at 19:00 Aspirin (Aspirin) 81 mg DAILY PO Last administered on 07/24/18at 08:45; Admin Dose 81 MG; Start 07/24/18 at 09:00 Atorvastatin Calcium (Lipitor) 80 mg HS PO Last administered on 07/24/18at 21:28; Admin Dose 80 MG; Start 07/23/18 at 21:00 Insulin Aspart (Novolog Insulin Pen) 10 unit WITH MEALS SC Last administered on 07/25/18at 11:42; Admin Dose 10 UNIT; Start 07/24/18 at 17:55 Insulin Glargine (Lantus) 30 units DAILY@2000 SC Last administered on 07/24/18at 21:41; Admin Dose 30 UNITS; Start 07/24/18 at 20:00 Al Hydrox/Mg Hydrox/Simethicone (Mag-Al Plus) 30 ml Q4H PRN PO GASTROINTESTINAL UPSET; Start 07/25/18 at 11:00 Ondansetron HCl (Zofran Inj) 4 mg Q4H PRN IV NAUSEA AND/OR VOMITING; Start 07/25/18 at 11:00 Sodium Chloride 1,000 ml @ 75 mls/hr [id number] IV Last administered on 07/25/18at 10:55; Admin Dose 75 MLS/HR; Start 07/25/18 at 10:39; Stop 07/25/18 at 15:38 CRISTINA RAUSCH Jul 25, 2018 14:16
--- NOTE | 2018-07-25 14:54 | CARRPT ---
DATE OF PROCEDURE: 07/25/2018 TYPE OF PROCEDURES: 1. Left heart catheterization. 2. Coronary angiography. 3. Measurement of left end diastolic pressure. ATTENDING PHYSICIAN: Cristina Zendejas MD REFERRING PHYSICIAN: Pritesh Melton MD, from the hospitalist service. INDICATION: Non-ST myocardial infarction. TYPE OF ANESTHESIA: Conscious and local. BRIEF HISTORY: Ms. Javier is a 72-year-old female with a history of hypertension, dyslipidemia, diabetes mellitus, who presented with complaints of substernal chest pain. The patient was subsequen tly ruled in for [id number]-MF-[id number] myocardial infarction; therefore was brought to the cardiac cath la b in order to assess for possibility of significant obstructive coronary artery disease lending sympt oms of chest pain and subsequent non-ST elevation myocardial infarction. DESCRIPTION OF PROCEDURE: After informed consent was obtained, the patient was brought into the [facility] cardiac fence laborer where her right radial area was prepped and draped in steri le fashion. A 2% lidocaine was infiltrated into right radial area in order to achieve adequate anest hesia. Using the modified Seldinger technique, the radial artery was cannulated and a 6-Martiniquais arter ial sheath was placed. A 6-Martiniquais JL3.5 catheter was used to cannulate the left main coronary ostium . With contrast injection, multiple views of the left coronary arterial system were obtained. JL3.5 was removed over a guidewire and a JR4 were used to cannulate the right coronary arterial ostium. W ith contrast injection, multiple views of the right coronary arterial system were obtained. JL4 was removed over a guidewire and a 6-Martiniquais pigtail was passed down the ascending aorta and placed in LV. LVEDP was measured and pullback across the aortic valve to assess for significant gradient and beth omero. Subsequently, this completed procedure. There were no noted complications. FINDINGS: Coronary angiography: Left main is 4 mm, no significant focal stenoses. Circumflex proxi rhonda is a 3 mm vessel and has a midbody 50% stenosis. The circumflex continuation AV groove ____ co vers the [place] has a diffuse 70% to 80% stenosis. The patient's LAD proximally is a 3 mm vessel and in its midportion has a very focal 70% to 80% stenosis and then in the very distal por tions of the apex, she has another focal 80% to 90% stenosis. There is mid branching diagonal, 2 mm with no significant focal stenoses. The patient's right coronary artery proximally is 3.5 mm vessel and in its midportion has 95% stenosis. Right coronary artery is dominant vessel and therefore gives off a small PDA sub 2 mm vessel with no significant focal stenoses and ____ posterolateral branch is 2.5 mm then splits into daughter branches with the second superior branch having very tight 95% sten osis. Measurement of LVEDP of 31. No significant aortic stenosis by gradient. TOTAL FLUOROSCOPY TIME: 4.1 minutes. TOTAL CONTRAST: 50 mL. IMPRESSION: Multivessel obstructive coronary artery disease involving a high-grade stenosis of the p atient's mid right coronary artery, mid and distal lesions in the patient's LAD and a diffusely disea sed circumflex branch. RECOMMENDATIONS: Given the findings: 1. The patient should be considered for possible coronary artery bypass graft surgery versus multive ssel PCI and thus we will consult cardiac surgery. 2. Maximize medical management. 3. Aggressive risk factor reduction. Dictated By: CRISTINA IQBAL/NTS Conf#: [id number] DID#: [id number] CC: PRITESH MELTON MD;*EndCC*
[2018-07-25] MEDS ORDERED: ATOR-2 PO (15:57)
[2018-07-25] MEDS ORDERED: ASPI-831 PO (15:57)
--- NOTE | 2018-07-25 17:47 | PN ---
Date/Time of Note Date/Time of Note DATE: 07/25/18 TIME: 17:44 Assessment/Plan VTE Prophylaxis Risk score (from Nsg)>0 risk: 7 SCD applied (from Nsg): Yes Pharmacological prophylaxis: heparin Lines/Catheters IV Catheter Type (from Nrsg): Peripheral IV Urinary Cath still in place: No Assessment/Plan Hospital Course 72 yo female with known CAD, stent 10 years ago, DMII, hypertension presenting with chest pain, found to have NSTEMI NSTEMI: -Status post left cath with Multivessel obstructive coronary artery disease involving a high-grade stenosis of the patient's mid right coronary artery, mid and distal lesions in the patient's LAD and a diffusely diseased circumflex branch -Patient PCI tomorrow but may need a CABG if unable to place stent - Continue aspirin, statin and heparin drip DMII with hyperglycemia: Out of control -A1c at 14 - Sugars remain quite elevated. Will increase dosing of basal/bolus insulin Prophylaxis: Heparin DC planning: PCI tomorrow otherwise family would like to transfer to [facility] for CABG if needed Result Diagram: 07/25/18 0548 07/25/18 0548 Results 24hrs Laboratory Tests Test 07/24/18 19:03 07/24/18 19:06 07/24/18 21:24 07/25/18 05:48 Activated 52.6 H 31.1 Partial Thromboplast Time Prothrombin Time 14.1 13.1 Prothrombin Time 1.1 1.0 Ratio INR International 1.08 0.98 Normalized Ratio Bedside Glucose 142 White Blood Count 6.9 Red Blood Count 4.67 Hemoglobin 11.7 L Hematocrit 37.9 Mean Corpuscular 81.2 L Volume Mean Corpuscular 25.1 L Hemoglobin Mean Corpuscular 30.9 L Hemoglobin Concent Red Cell 17.5 H Distribution Width Platelet Count 252 Mean Platelet Volume 10.4 Immature 0.300 Granulocytes % Neutrophils % 53.6 Lymphocytes % 36.6 Monocytes % 6.0 Eosinophils % 2.8 Basophils % 0.7 Nucleated Red Blood 0.0 Cells % Immature 0.020 Granulocytes # Neutrophils # 3.7 Lymphocytes # 2.5 Monocytes # 0.4 Eosinophils # 0.2 Basophils # 0.1 Nucleated Red Blood 0.0 Cells # Sodium Level 135 Potassium Level 4.5 Chloride Level 100 Carbon Dioxide Level 25 Anion Gap 10 Blood Urea Nitrogen 30 H Creatinine 0.75 Est Glomerular Filtrat Rate mL/min Glucose Level 356 H Calcium Level 9.4 Triglycerides Level 237 H Test 07/25/18 07:53 07/25/18 11:13 07/25/18 14:30 07/25/18 17:03 Bedside Glucose 370 H 302 H 310 H Activated 23.9 Partial Thromboplast Time Subjective 24 Hr Interval Summary Constitutional: no complaints Exam/Review of Systems Exam Vitals Vital Signs Date Temp Pulse Resp B/P (MAP) Pulse Ox O2 O2 Flow FiO2 Time Delivery Rate 07/25/18 98.5 81 16 137/50 96 15:52 (79) 07/25/18 Room Air 14:59 07/23/18 2 17:52 Intake and Output 07/24/18 07/24/18 07/25/18 1515:00 23:00 07:00 IntakeIntake Total 500 ml 500 ml BalanceBalance 500 ml 500 ml Constitutional: alert, oriented Respiratory: clear to auscultation Cardiovascular: regular rate and rhythm Gastrointestinal: soft; No distended Musculoskeletal: nl extremities to inspection Results Results 24hrs Laboratory Tests Test 07/24/18 19:03 07/24/18 19:06 07/24/18 21:24 07/25/18 05:48 Activated 52.6 H 31.1 Partial Thromboplast Time Prothrombin Time 14.1 13.1 Prothrombin Time 1.1 1.0 Ratio INR International 1.08 0.98 Normalized Ratio Bedside Glucose 142 White Blood Count 6.9 Red Blood Count 4.67 Hemoglobin 11.7 L Hematocrit 37.9 Mean Corpuscular 81.2 L Volume Mean Corpuscular 25.1 L Hemoglobin Mean Corpuscular 30.9 L Hemoglobin Concent Red Cell 17.5 H Distribution Width Platelet Count 252 Mean Platelet Volume 10.4 Immature 0.300 Granulocytes % Neutrophils % 53.6 Lymphocytes % 36.6 Monocytes % 6.0 Eosinophils % 2.8 Basophils % 0.7 Nucleated Red Blood 0.0 Cells % Immature 0.020 Granulocytes # Neutrophils # 3.7 Lymphocytes # 2.5 Monocytes # 0.4 Eosinophils # 0.2 Basophils # 0.1 Nucleated Red Blood 0.0 Cells # Sodium Level 135 Potassium Level 4.5 Chloride Level 100 Carbon Dioxide Level 25 Anion Gap 10 Blood Urea Nitrogen 30 H Creatinine 0.75 Est Glomerular Filtrat Rate mL/min Glucose Level 356 H Calcium Level 9.4 Triglycerides Level 237 H Test 07/25/18 07:53 07/25/18 11:13 07/25/18 14:30 07/25/18 17:03 Bedside Glucose 370 H 302 H 310 H Activated 23.9 Partial Thromboplast Time Medications Medication Current Medications Nitroglycerin (Nitroglycerin (Sl Tab) 0.4 Mg) 1 tab Q5M UP TO 3 DOSES PRN SL .CHEST PAIN; Start 07/23/18 at 17:30 IV Flush (NS 3 ml) 3 ml PER PROTOCOL IV ; Start 07/23/18 at 19:00 Oxycodone/ Acetaminophen (Percocet (5/ 325)) 2 tab Q6H PRN PO .SEVERE PAIN 7-10 Last administered on 07/24/18at 11:45; Admin Dose 2 TAB; Start 07/23/18 at 19:00 Insulin Aspart (Novolog Insulin Pen) NOVOLOG *MODERATE* ALGORITHM WITH MEALS BEDTIME SC Last administered on 07/25/18at 17:09; Admin Dose 10 UNIT; Start 07/23/18 at 21:00 Doxepin HCl (Sinequan) 10 mg DAILY PO Last administered on 07/25/18at 11:04; Admin Dose 10 MG; Start 07/24/18 at 09:00 Isosorbide Mononitrate (Imdur) 30 mg DAILY PO Last administered on 07/25/18at 11 :05; Admin Dose 30 MG; Start 07/24/18 at 09:00 Metoprolol Succinate (Toprol Xl) 200 mg QAM PO Last administered on 07/25/18 11:04; Admin Dose 200 MG; Start 07/24/18 at 09:00 Pregabalin (Lyrica) 100 mg BID PO Last administered on 07/25/18at 11:06; Admin Dose 100 MG; Start 07/23/18 at 21:00 Miscellaneous Information 1 ea NOTE XX ; Start 07/23/18 at 19:00 Glucose (Glutose) 15 gm Q15M PRN PO DECREASED GLUCOSE; Start 07/23/18 at 19:00 Glucose (Glutose) 22.5 gm Q15M PRN PO DECREASED GLUCOSE; Start 07/23/18 at 19:00 Dextrose (D50w Syringe) 25 ml Q15M PRN IV DECREASED GLUCOSE; Start 07/23/18 at 19:00 Dextrose (D50w Syringe) 50 ml Q15M PRN IV DECREASED GLUCOSE; Start 07/23/18 at 19:00 Glucagon (Glucagen) 1 mg Q15M PRN IM DECREASED GLUCOSE; Start 07/23/18 at 19:00 Glucose (Glutose) 15 gm Q15M PRN BUCCAL DECREASED GLUCOSE; Start 07/23/18 at 19:00 Aspirin (Aspirin) 81 mg DAILY PO Last administered on 07/24/18at 08:45; Admin Dose 81 MG; Start 07/24/18 at 09:00 Atorvastatin Calcium (Lipitor) 80 mg HS PO Last administered on 07/24/18at 21:28; Admin Dose 80 MG; Start 07/23/18 at 21:00 Al Hydrox/Mg Hydrox/Simethicone (Mag-Al Plus) 30 ml Q4H PRN PO GASTROINTESTINAL UPSET; Start 07/25/18 at 11:00 Ondansetron HCl (Zofran Inj) 4 mg Q4H PRN IV NAUSEA AND/OR VOMITING; Start 07/25/18 at 11:00 Diazepam (Valium) 5 mg OC ONCE PO ; Start 07/26/18 at 10:00; Stop 07/26/18 at 10:01 Diphenhydramine HCl (Benadryl) 50 mg OC ONCE PO ; Start 07/26/18 at 10:00; Stop 07/26/18 at 10:01 Insulin Aspart (Novolog Insulin Pen) 12 unit WITH MEALS SC ; Start 07/25/18 at 17:55 Insulin Glargine (Lantus) 34 units DAILY@2000 SC ; Start 07/25/18 at 20:00 DRU OHARA Jul 25, 2018 17:47
--- NOTE | 2018-07-25 18:34 | RADRPT ---
Vent Rate: 79 bpm RR Interval: 0 msec UT Interval: 150 msec QRS Duration: 130 msec QT Interval: 398 msec QTC Interval: 456 msec P-R-T Ranson: 44 - -78 - 66 degrees Normal sinus rhythm Left axis deviation Right bundle branch block Abnormal ECG Electronically Signed By: Ad Zendejas
--- NOTE | 2018-07-25 19:18 | CONS ---
Assessment/Plan Assessment/Plan Assessment/Plan (Daily) Coronary artery disease Shortness of breath Non-ST elevation [place] Obesity Diabetes BCT right knee surgery Lack of mobility This patient is at high risk of surgery secondary to obesity lack of mobility a nd shortness of breath Family would like to get a second opinion from hospitality house supervisor at [facility] Would recommend possible angioplasty of the coronary vessels Discussed with the patient's daughter at length all questions answered Consultation Date/Type/Reason Admit Date/Time Jul 25, 2018 at 06:38 Date of Consultation: Jul 25, 2018 Type of Consult Cardiothoracic surgery Reason for Consultation Evaluation for coronary artery bypass grafting Date/Time of Note DATE: 07/25/18 TIME: 19:14 Hx of Present Illness 72-year-old female with a history of obesity lack of mobility right knee replacement was admitted because of shortness of breath underwent a cardiac catheterization which was positive for significant disease in the right coronary artery and LAD and the circumflex coronary artery . patient does not have any acute chest pain at the present time ENT: no complaints Respiratory: no complaints Cardiovascular: no complaints Gastrointestinal: no complaints Genitourinary: no complaints Musculoskeletal: no complaints Skin: no complaints Neurologic: no complaints Endocrine: no complaints Lymphatic: no complaints Past Medical History Medical History: no pertinent history, angina Home Meds Active Scripts Atorvastatin* (Atorvastatin*) 80 Mg Tablet, 80 MG PO HS, #60 TAB Prov:DRU OHARA 07/25/18 Aspirin (Aspirin) 81 Mg Chew, 81 MG PO DAILY, #60 TAB Prov:DRU OHARA 07/25/18 Reported Medications Glipizide* (Glipizide*) 10 Mg Tablet, 10 MG PO BID 07/23/18 Isosorbide Mononitrate* (Isosorbide Mononitrate*) 30 Mg Tab.er.24h, 30 MG PO DAILY 07/23/18 Doxepin Hcl* (Doxepin Hcl*) 10 Mg Capsule, 10 MG PO DAILY 07/23/18 Mirabegron (Myrbetriq) 50 Mg Tab.er.24h, 50 MG PO DAILY 07/23/18 Sitagliptin Phos/Metformin HCl (Janumet 50-1,000 mg Tablet) 1 Each Tablet, 1 TAB PO DAILY 07/23/18 Pregabalin* (Lyrica*) 100 Mg Capsule, 100 MG PO BID, CAP 07/23/18 Metoprolol Succinate* (Toprol XL*) 200 Mg Tab.sr.24h, 200 MG PO QAM 07/23/18 Insulin Aspart* (Novolog Insulin Pen*) 100 Unit/Ml Soln, 0 SC .SLIDING SCALE AC, EA 07/23/18 Insulin Detemir (Levemir Flextouch) 100 Unit/1 Ml Insuln.pen, 28-35 UNIT SQ BID, EA 07/23/18 Nitroglycerin* (Nitroglycerin* SL) 0.4 Mg Tab.subl, 0.4 MG SL Q5MIN PRN for CHEST PAIN, BOTTLE 07/23/18 Discontinued Reported Medications Isosorbide Mononitrate* (Imdur*) 120 Mg Tab.sr.24h 04/25/09 Glimepiride* (Amaryl*) 4 Mg Tablet 04/25/09 Ergocalciferol (Vitamin D) 50,000 Unit Capsule 04/25/09 Nitroglycerin (Nitroquick) 0.4 Mg Tab.subl 04/25/09 Valsartan* (Diovan*) 320 Mg Tablet 04/25/09 Metoprolol Succinate* (Toprol XL*) 25 Mg Tab.sr.24h 04/25/09 Atorvastatin (Lipitor) 20 Mg Tablet 04/25/09 Clopidogrel Bisulfate (Plavix) 75 Mg Tablet 04/25/09 Nortriptyline Hcl* (Nortriptyline Hcl*) 25 Mg Capsule 04/25/09 Duloxetine Hcl* (Cymbalta*) 60 Mg Capsule. 04/25/09 Pioglitazone Hcl-Metformin Hcl (Actoplus Met) 1 Tab Tablet 04/25/09 Discontinued Scripts Hydrocodone/Acetaminophen ([place] 10-325 Tablet) 1 Each Tablet, 1 TAB PO Q6H PRN for PAIN, #7 TAB Prov:ELZA CALVILLO 02/21/18 Medications Current Medications Nitroglycerin (Nitroglycerin (Sl Tab) 0.4 Mg) 1 tab Q5M UP TO 3 DOSES PRN SL .CHEST PAIN; Start 07/23/18 at 17:30 IV Flush (NS 3 ml) 3 ml PER PROTOCOL IV ; Start 07/23/18 at 19:00 Oxycodone/ Acetaminophen (Percocet (5/ 325)) 2 tab Q6H PRN PO .SEVERE PAIN 7-10 Last administered on 07/24/18at 11:45; Admin Dose 2 TAB; Start 07/23/18 at 19:00 Insulin Aspart (Novolog Insulin Pen) NOVOLOG *MODERATE* ALGORITHM WITH MEALS BE DTIME SC Last administered on 07/25/18 17:09; Admin Dose 10 UNIT; Start 07/23/18 at 21:00 Doxepin HCl (Sinequan) 10 mg DAILY PO Last administered on 07/25/18 11:04; Admin Dose 10 MG; Start 07/24/18 at 09:00 Isosorbide Mononitrate (Imdur) 30 mg DAILY PO Last administered on 07/25/18 11:05; Admin Dose 30 MG; Start 07/24/18 at 09:00 Metoprolol Succinate (Toprol Xl) 200 mg QAM PO Last administered on 07/25/18 11:04; Admin Dose 200 MG; Start 07/24/18 at 09:00 Pregabalin (Lyrica) 100 mg BID PO Last administered on 07/25/18 11:06; Admin Dose 100 MG; Start 07/23/18 at 21:00 Miscellaneous Information 1 ea NOTE XX ; Start 07/23/18 at 19:00 Glucose (Glutose) 15 gm Q15M PRN PO DECREASED GLUCOSE; Start 07/23/18 at 19:00 Glucose (Glutose) 22.5 gm Q15M PRN PO DECREASED GLUCOSE; Start 07/23/18 at 19:00 Dextrose (D50w Syringe) 25 ml Q15M PRN IV DECREASED GLUCOSE; Start 07/23/18 at 19:00 Dextrose (D50w Syringe) 50 ml Q15M PRN IV DECREASED GLUCOSE; Start 07/23/18 at 19:00 Glucagon (Glucagen) 1 mg Q15M PRN IM DECREASED GLUCOSE; Start 07/23/18 at 19:00 Glucose (Glutose) 15 gm Q15M PRN BUCCAL DECREASED GLUCOSE; Start 07/23/18 at 19:00 Aspirin (Aspirin) 81 mg DAILY PO Last administered on 07/24/18at 08:45; Admin Dose 81 MG; Start 07/24/18 at 09:00 Atorvastatin Calcium (Lipitor) 80 mg HS PO Last administered on 07/24/18at 21:28; Admin Dose 80 MG; Start 07/23/18 at 21:00 Al Hydrox/Mg Hydrox/Simethicone (Mag-Al Plus) 30 ml Q4H PRN PO GASTROINTESTINAL UPSET; Start 07/25/18 at 11:00 Ondansetron HCl (Zofran Inj) 4 mg Q4H PRN IV NAUSEA AND/OR VOMITING; Start 07/25/18 at 11:00 Diazepam (Valium) 5 mg OC ONCE PO ; Start 07/26/18 at 10:00; Stop 07/26/18 at 10:01 Diphenhydramine HCl (Benadryl) 50 mg OC ONCE PO ; Start 07/26/18 at 10:00; Stop 07/26/18 at 10:01 Insulin Aspart (Novolog Insulin Pen) 12 unit WITH MEALS SC Last administered on 07/25/18at 17:51; Admin Dose 12 UNIT; Start 07/25/18 at 17:55 Insulin Glargine (Lantus) 34 units DAILY@2000 SC ; Start 07/25/18 at 20:00 Allergies: Coded Allergies: calcium (Verified Allergy, Mild, ITCHING, 07/23/18) ergocalciferol (vitamin D2) (Verified Allergy, Mild, ITCHING (FROM OS-ENMANUEL WITH VITAMIN D), 07/23/18) cyanocobalamin (vitamin B12) (Verified Allergy, Unknown, 07/23/18) Past Surgical History Past Surgical Hx: no surgical history Social History Alcohol Use: none Smoking Status: Former smoker Drug Use: none Exam/Review of Systems Exam Vitals Vital Signs Date Temp Pulse Resp B/P (MAP) Pulse Ox O2 O2 Flow FiO2 Time Delivery Rate 07/25/18 81 17:40 07/25/18 98.5 16 137/50 96 15:52 (79) 07/25/18 Room Air 14:59 07/23/18 2 17:52 Intake and Output 07/24/18 07/24/18 07/25/18 1515:00 23:00 07:00 IntakeIntake Total 500 ml 500 ml BalanceBalance 500 ml 500 ml Neck: supple, non-tender Respiratory: clear to auscultation, normal air movement Cardiovascular: regular rate and rhythm, nl pulses Gastrointestinal: soft, nl liver, spleen, non-tender Musculoskeletal: nl extremities to inspection, nl gait and stance Extremities: normal pulses Neurological: PROPERTY CLERK II-XII intact, nl mental status, nl speech, nl strength Results Result Diagram: 07/25/18 0548 07/25/18 0548 Results 24hrs Laboratory Tests Test 07/24/18 21:24 07/25/18 05:48 07/25/18 07:53 07/25/18 11:13 Bedside Glucose 142 370 H 302 H White Blood Count 6.9 Red Blood Count 4.67 Hemoglobin 11.7 L Hematocrit 37.9 Mean Corpuscular 81.2 L Volume Mean Corpuscular 25.1 L Hemoglobin Mean Corpuscular 30.9 L Hemoglobin Concent Red Cell 17.5 H Distribution Width Platelet Count 252 Mean Platelet Volume 10.4 Immature 0.300 Granulocytes % Neutrophils % 53.6 Lymphocytes % 36.6 Monocytes % 6.0 Eosinophils % 2.8 Basophils % 0.7 Nucleated Red Blood 0.0 Cells % Immature 0.020 Granulocytes # Neutrophils # 3.7 Lymphocytes # 2.5 Monocytes # 0.4 Eosinophils # 0.2 Basophils # 0.1 Nucleated Red Blood 0.0 Cells # Prothrombin Time 13.1 Prothrombin Time 1.0 Ratio INR International 0.98 Normalized Ratio Activated 31.1 Partial Thromboplast Time Sodium Level 135 Potassium Level 4.5 Chloride Level 100 Carbon Dioxide Level 25 Anion Gap 10 Blood Urea Nitrogen 30 H Creatinine 0.75 Est Glomerular Filtrat Rate mL/min Glucose Level 356 H Calcium Level 9.4 Triglycerides Level 237 H Test 07/25/18 14:30 07/25/18 17:03 Activated 23.9 Partial Thromboplast Time Bedside Glucose 310 H Medications Medication Current Medications Nitroglycerin (Nitroglycerin (Sl Tab) 0.4 Mg) 1 tab Q5M UP TO 3 DOSES PRN SL .CHEST PAIN; Start 07/23/18 at 17:30 IV Flush (NS 3 ml) 3 ml PER PROTOCOL IV ; Start 07/23/18 at 19:00 Oxycodone/ Acetaminophen (Percocet (5/ 325)) 2 tab Q6H PRN PO .SEVERE PAIN 7-10 Last administered on 07/24/18at 11:45; Admin Dose 2 TAB; Start 07/23/18 at 19:00 Insulin Aspart (Novolog Insulin Pen) NOVOLOG *MODERATE* ALGORITHM WITH MEALS BEDTIME SC Last administered on 07/25/18at 17:09; Admin Dose 10 UNIT; Start 07/23/18 at 21:00 Doxepin HCl (Sinequan) 10 mg DAILY PO Last administered on 07/25/18at 11:04; Admin Dose 10 MG; Start 07/24/18 at 09:00 Isosorbide Mononitrate (Imdur) 30 mg DAILY PO Last administered on 07/25/18at 11:05; Admin Dose 30 MG; Start 07/24/18 at 09:00 Metoprolol Succinate (Toprol Xl) 200 mg QAM PO Last administered on 07/25/18at 11:04; Admin Dose 200 MG; Start 07/24/18 at 09:00 Pregabalin (Lyrica) 100 mg BID PO Last administered on 07/25/18at 11:06; Admin Dose 100 MG; Start 07/23/18 at 21:00 Miscellaneous Information 1 ea NOTE XX ; Start 07/23/18 at 19:00 Glucose (Glutose) 15 gm Q15M PRN PO DECREASED GLUCOSE; Start 07/23/18 at 19:00 Glucose (Glutose) 22.5 gm Q15M PRN PO DECREASED GLUCOSE; Start 07/23/18 at 19:00 Dextrose (D50w Syringe) 25 ml Q15M PRN IV DECREASED GLUCOSE; Start 07/23/18 at 19:00 Dextrose (D50w Syringe) 50 ml Q15M PRN IV DECREASED GLUCOSE; Start 07/23/18 at 19:00 Glucagon (Glucagen) 1 mg Q15M PRN IM DECREASED GLUCOSE; Start 07/23/18 at 19:00 Glucose (Glutose) 15 gm Q15M PRN BUCCAL DECREASED GLUCOSE; Start 07/23/18 at 19:00 Aspirin (Aspirin) 81 mg DAILY PO Last administered on 07/24/18at 08:45; Admin Dose 81 MG; Start 07/24/18 at 09:00 Atorvastatin Calcium (Lipitor) 80 mg HS PO Last administered on 07/24/18at 21:28; Admin Dose 80 MG; Start 07/23/18 at 21:00 Al Hydrox/Mg Hydrox/Simethicone (Mag-Al Plus) 30 ml Q4H PRN PO GASTROINTESTINAL UPSET; Start 07/25/18 at 11:00 Ondansetron HCl (Zofran Inj) 4 mg Q4H PRN IV NAUSEA AND/OR VOMITING; Start 07/25/18 at 11:00 Diazepam (Valium) 5 mg OC ONCE PO ; Start 07/26/18 at 10:00; Stop 07/26/18 at 10:01 Diphenhydramine HCl (Benadryl) 50 mg OC ONCE PO ; Start 07/26/18 at 10:00; Stop 07/26/18 at 10:01 Insulin Aspart (Novolog Insulin Pen) 12 unit WITH MEALS SC Last administered on 07/25/18at 17:51; Admin Dose 12 UNIT; Start 07/25/18 at 17:55 Insulin Glargine (Lantus) 34 units DAILY@2000 SC ; Start 07/25/18 at 20:00 BERNA PATRICIO MD Jul 25, 2018 19:18
[2018-07-25] MEDS ORDERED: INSULIN GLARGINE [LANTus] (100 UNITS/ML) SYG SC SCH (20:00)
[2018-07-25] MEDS: ATORVASTATIN 80 MG TAB PO SCH (20:36)
[2018-07-26] VITALS (10 sets, daily range): BP systolic 112–179; BP diastolic 44–76; PULSE 68–82; RESP 16–19
--- NOTE | 2018-07-26 06:28 | CONS ---
DATE OF ADMISSION: 07/25/2018 DATE OF CONSULTATION: 07/25/2018 TYPE OF CONSULTATION: Pulmonary. REASON FOR CONSULTATION: Chest pain, non-ST elevation myocardial infarction. REQUESTING PHYSICIAN: Pritesh Melton MD HISTORY OF PRESENT ILLNESS: Ms. Javier is a 72-year-old female with a history of diabetes mellit us, hypertension, dyslipidemia who presented with complaints of substernal chest pain. Initially upo n arrival, temperature of 99.6, blood pressure 132/60, pulse , respiratory rate 18, saturating 9 8%. The patient's labs were notable for white count 7.2, hemoglobin 12.5, platelet count 278, sodium of 135, potassium 4.1, creatinine 0.6, BUN 18. Troponin initially negative. BNP 1950 with a follow up troponin being positive at 0.275 and trending up from there at 0.49. The patient had a chest x-ra y done revealing no acute cardiopulmonary abnormalities. The patient's electrocardiogram revealed in itially a sinus tachycardia at 118 with right superior axis deviation, right bundle branch block, sec ondary repolarization abnormalities, diffuse nonspecific ST and T wave abnormalities. The patient wa s admitted to the floor where she had followup troponin and was initiated on heparin and had trending of cardiac enzymes. The patient started on a beta john and oral nitrates. PAST MEDICAL HISTORY: As above in HPI. MEDICATIONS CURRENTLY IN HOSPITAL: 1. Insulin. 2. Doxepin. 3. Imdur 30 mg daily. 4. Toprol-XL 200 mg daily. 5. Aspirin 81 mg daily. 6. Lipitor 80 mg at bedtime. 7. Percocet p.r.n. 8. p.r.n. ALLERGIES: 1. CALCIUM. 2. VITAMIN B12. 3. VITAMIN D2. SOCIAL HISTORY: No current tobacco, ETOH or illicit drug use. FAMILY HISTORY: No sudden cardiac or early CAD. REVIEW OF SYSTEMS: As above in HPI. CONSTITUTIONAL: No fevers, chills. PULMONARY: Dyspnea on exertion. CARDIOVASCULAR: Intermittent chest pain. GASTROINTESTINAL: No vomiting. GENITOURINARY: No hematuria. MUSCULOSKELETAL: Degenerative joint disease. PSYCHIATRIC: The patient denies depression. NEUROLOGIC: No documented history of CVA. ENDOCRINE: Positive for diabetes mellitus. PHYSICAL EXAMINATION: VITAL SIGNS: Temperature 98.5, blood pressure most recently 120/44, pulse 93, respiratory rate 18, s atting 97%. GENERAL: The patient is alert, awake, with intermittent chest pain. NECK: JVP approximately 8 cm water. CHEST: Fair air movement throughout. HEART: Regular rate and rhythm. Normal S1, S2, I/ systolic murmur. Nondisplaced PMI. ABDOMEN: Positive bowel sounds, soft. EXTREMITIES: No significant pitting edema, 1+ pulses bilateral posterior tibial. LABORATORIES: As the patient was seen on 07/23 the labs that were most recent at that time was sodiu m 135, potassium 4.1, creatinine 0.6, BUN 18. Troponin positive at 0.275, white blood cell count of 7.3, hemoglobin 9.7, platelet count of 300. IMAGING STUDIES: As above in HPI. ECG: As above in HPI. No further electrocardiograms for my review at this time. IMPRESSION: 1. Non-ST elevation myocardial infarction with mild uptrend in troponins. 2. Chest pain, assess . 3. Coronary artery disease with a cardiac CTA revealing possible high-grade stenosis of the patient' s circumflex just done recently 07/14/2018. 4. Hypertension. 5. Dyslipidemia. RECOMMENDATIONS: 1. At this time, would maintain patient on her beta john. 2. Continue the patient's aspirin and the patient's heparin at this time. 3. Continue the patient's statin therapy and adjust it according . 4. Trend the patient's cardiac enzymes. 5. Check an a.m. EKG to assess for ongoing changes and the patient will be scheduled to have a cardi ac catheterization take place first thing in the morning. Dictated By: CRISTINA IQBAL/AUDREY Conf#: [id number] DID#: [id number] CC: PRITESH MELTON MD;*EndCC*
[2018-07-26] MEDS: INSULIN ASPART [NOVOLOG] 3 ML PEN SC SCH ×5 (07:44→16:58)
[2018-07-26] MEDS: ISOSORBIDE MONONITRATE(SR)30 MG TAB PO SCH (08:54)
[2018-07-26] MEDS: DOXEPIN 10 MG CAP PO SCH (08:54)
[2018-07-26] MEDS: METOPROLOL (XL) 100 MG TAB PO SCH (08:54)
[2018-07-26] MEDS: PREGABALIN 100 MG CAP PO SCH (08:54)
[2018-07-26] MEDS: ASPIRIN 81 MG TAB PO SCH (08:55)
--- NOTE | 2018-07-26 09:17 | CONS ---
Consult Date/Type/Reason Admit Date/Time Jul 25, 2018 at 06:38 Initial Consult Date 07/25/18 Requesting Provider: JOHNATHAN BARBA MD Date/Time of Note DATE: 07/26/18 TIME: 09:15 Subjective NO acute events - pt with intermittent chest discomfort - CP free now - awaiting family decision on PCI vs CABG vs med rx. ROS: No fever, no chills, no nausea, no vomiting, no diarrhea/constipation No recent weight changes Intermittent chest pain (not sustained) , no PND, no orthopnea + SOB No dizziness, blurred vision No thirst, no heat or cold intolerance Objective Vitals Vital Signs Date Temp Pulse Resp B/P (MAP) Pulse Ox O2 O2 Flow FiO2 Time Delivery Rate 07/26/18 78 08:43 07/26/18 98.2 16 144/63 95 07:25 (90) 07/25/18 Room Air 14:59 07/23/18 2 17:52 Intake and Output 07/25/18 07/25/18 07/26/18 1515:00 23:00 07:00 IntakeIntake Total 850 ml 350 ml BalanceBalance 850 ml 350 ml Exam General: WN/WD/NAD, AOx 3 HEENT: Unicetric/atraumatic/EOMI ( follow commands) NECK: JVD elevated, no thyromegaly Lymph: no lymphadenopathy HEART: regular with no S3, II/ systolic murmur at apex, PMI L LUNGS: Coarse sounds ABD: soft, NT, ND, +BS : Intact Neuro: non focal SKIN: chronic changes EXT: trace edema Results/Medications Result Diagram: 07/26/18 0707/26/18 0701 Results 24 hrs Laboratory Tests Test 07/25/18 11:13 07/25/18 14:30 07/25/18 17:03 07/25/18 20:34 Bedside Glucose 302 H 310 H 197 Activated 23.9 Partial Thromboplast Time Test 07/25/18 22:31 07/26/18 01:36 07/26/18 07:01 07/26/18 07:14 Bedside Glucose 104 144 159 White Blood Count 5.7 Red Blood Count 4.31 Hemoglobin 10.8 L Hematocrit 34.8 L Mean Corpuscular 80.7 L Volume Mean Corpuscular 25.1 L Hemoglobin Mean Corpuscular 31.0 L Hemoglobin Concent Red Cell 17.5 H Distribution Width Platelet Count 202 Mean Platelet Volume 10.4 Immature 0.200 Granulocytes % Neutrophils % 51.6 Lymphocytes % 37.6 Monocytes % 7.0 Eosinophils % 3.3 Basophils % 0.3 Nucleated Red Blood 0.0 Cells % Immature 0.010 Granulocytes # Neutrophils # 3.0 Lymphocytes # 2.2 Monocytes # 0.4 Eosinophils # 0.2 Basophils # 0.0 Nucleated Red Blood 0.0 Cells # Sodium Level 138 Potassium Level 4.0 Chloride Level 102 Carbon Dioxide Level 27 Anion Gap 9 Blood Urea Nitrogen 23 H Creatinine 0.50 Est Glomerular Filtrat Rate mL/min Glucose Level 155 # Calcium Level 8.7 Magnesium Level 1.8 Home Meds Active Scripts Atorvastatin* (Atorvastatin*) 80 Mg Tablet, 80 MG PO HS, #60 TAB Prov:DRU OHARA 07/25/18 Aspirin (Aspirin) 81 Mg Chew, 81 MG PO DAILY, #60 TAB Prov:DRU OHARA 07/25/18 Reported Medications Glipizide* (Glipizide*) 10 Mg Tablet, 10 MG PO BID 07/23/18 Isosorbide Mononitrate* (Isosorbide Mononitrate*) 30 Mg Tab.er.24h, 30 MG PO DAILY 07/23/18 Doxepin Hcl* (Doxepin Hcl*) 10 Mg Capsule, 10 MG PO DAILY 07/23/18 Mirabegron (Myrbetriq) 50 Mg Tab.er.24h, 50 MG PO DAILY 07/23/18 Sitagliptin Phos/Metformin HCl (Janumet 50-1,000 mg Tablet) 1 Each Tablet, 1 TAB PO DAILY 07/23/18 Pregabalin* (Lyrica*) 100 Mg Capsule, 100 MG PO BID, CAP 07/23/18 Metoprolol Succinate* (Toprol XL*) 200 Mg Tab.sr.24h, 200 MG PO QAM 07/23/18 Insulin Aspart* (Novolog Insulin Pen*) 100 Unit/Ml Soln, 0 SC .SLIDING SCALE AC, EA 07/23/18 Insulin Detemir (Levemir Flextouch) 100 Unit/1 Ml Insuln.pen, 28-35 UNIT SQ BID, EA 07/23/18 Nitroglycerin* (Nitroglycerin* SL) 0.4 Mg Tab.subl, 0.4 MG SL Q5MIN PRN for CH EST PAIN, BOTTLE 07/23/18 Discontinued Reported Medications Isosorbide Mononitrate* (Imdur*) 120 Mg Tab.sr.24h 04/25/09 Glimepiride* (Amaryl*) 4 Mg Tablet 04/25/09 Ergocalciferol (Vitamin D) 50,000 Unit Capsule 04/25/09 Nitroglycerin (Nitroquick) 0.4 Mg Tab.subl 04/25/09 Valsartan* (Diovan*) 320 Mg Tablet 04/25/09 Metoprolol Succinate* (Toprol XL*) 25 Mg Tab.sr.24h 04/25/09 Atorvastatin (Lipitor) 20 Mg Tablet 04/25/09 Clopidogrel Bisulfate (Plavix) 75 Mg Tablet 04/25/09 Nortriptyline Hcl* (Nortriptyline Hcl*) 25 Mg Capsule 04/25/09 Duloxetine Hcl* (Cymbalta*) 60 Mg Capsule. 04/25/09 Pioglitazone Hcl-Metformin Hcl (Actoplus Met) 1 Tab Tablet 04/25/09 Discontinued Scripts Hydrocodone/Acetaminophen ([place] 10-325 Tablet) 1 Each Tablet, 1 TAB PO Q6H PRN for PAIN, #7 TAB Prov:ELZA CALVILLO 02/21/18 Medications Current Medications Nitroglycerin (Nitroglycerin (Sl Tab) 0.4 Mg) 1 tab Q5M UP TO 3 DOSES PRN SL .CHEST PAIN; Start 07/23/18 at 17:30 IV Flush (NS 3 ml) 3 ml PER PROTOCOL IV ; Start 07/23/18 at 19:00 Oxycodone/ Acetaminophen (Percocet (5/ 325)) 2 tab Q6H PRN PO .SEVERE PAIN 7-10 Last administered on 07/24/18at 11:45; Admin Dose 2 TAB; Start 07/23/18 at 19:00 Insulin Aspart (Novolog Insulin Pen) NOVOLOG *MODERATE* ALGORITHM WITH MEALS BEDTIME SC Last administered on 07/26/18at 07:44; Admin Dose 2 UNIT; Start 07/23/18 at 21:00 Doxepin HCl (Sinequan) 10 mg DAILY PO Last administered on 07/26/18at 08:54; Admin Dose 10 MG; Start 07/24/18 at 09:00 Isosorbide Mononitrate (Imdur) 30 mg DAILY PO Last administered on 07/26/18at 08:54; Admin Dose 30 MG; Start 07/24/18 at 09:00 Metoprolol Succinate (Toprol Xl) 200 mg QAM PO Last administered on 07/26/18at 08:54; Admin Dose 200 MG; Start 07/24/18 at 09:00 Pregabalin (Lyrica) 100 mg BID PO Last administered on 07/26/18at 08:54; Admin Dose 100 MG; Start 07/23/18 at 21:00 Miscellaneous Information 1 ea NOTE XX ; Start 07/23/18 at 19:00 Glucose (Glutose) 15 gm Q15M PRN PO DECREASED GLUCOSE; Start 07/23/18 at 19:00 Glucose (Glutose) 22.5 gm Q15M PRN PO DECREASED GLUCOSE; Start 07/23/18 at 19:00 Dextrose (D50w Syringe) 25 ml Q15M PRN IV DECREASED GLUCOSE; Start 07/23/18 at 19:00 Dextrose (D50w Syringe) 50 ml Q15M PRN IV DECREASED GLUCOSE; Start 07/23/18 at 19:00 Glucagon (Glucagen) 1 mg Q15M PRN IM DECREASED GLUCOSE; Start 07/23/18 at 19:00 Glucose (Glutose) 15 gm Q15M PRN BUCCAL DECREASED GLUCOSE; Start 07/23/18 at 1 9:00 Aspirin (Aspirin) 81 mg DAILY PO Last administered on 07/24/18at 08:45; Admin Dose 81 MG; Start 07/24/18 at 09:00 Atorvastatin Calcium (Lipitor) 80 mg HS PO Last administered on 07/25/18at 20:36; Admin Dose 80 MG; Start 07/23/18 at 21:00 Al Hydrox/Mg Hydrox/Simethicone (Mag-Al Plus) 30 ml Q4H PRN PO GASTROINTESTINAL UPSET; Start 07/25/18 at 11:00 Ondansetron HCl (Zofran Inj) 4 mg Q4H PRN IV NAUSEA AND/OR VOMITING; Start 07/25/18 at 11:00 Diazepam (Valium) 5 mg OC ONCE PO ; Start 07/26/18 at 10:00; Stop 07/26/18 at 10:01 Diphenhydramine HCl (Benadryl) 50 mg OC ONCE PO ; Start 07/26/18 at 10:00; Stop 07/26/18 at 10:01 Insulin Aspart (Novolog Insulin Pen) 12 unit WITH MEALS SC Last administered on 07/26/18at 07:45; Admin Dose 12 UNIT; Start 07/25/18 at 17:55 Insulin Glargine (Lantus) 34 units DAILY@2000 SC Last administered on 07/25/18at 20:46; Admin Dose 34 UNITS; Start 07/25/18 at 20:00 Assessment/Plan Hospital Course (Demo Recall) 1. Non-ST elevation myocardial infarction with mild uptrend in troponins + CAD per LHC, awaiting family decision of LHC vs CABG vs MeD Rx. 2. Chest pain - intermittent, anginal Rx for nw. 3. Coronary artery disease with a cardiac CTA revealing possible high-grade stenosis of the patient's circumflex just done recently 07/14/2018. Dispo planned per family decision. 4. Hypertension- well Rx, con't to ,monitor. 5. Dyslipidemia - on stain. DOMINICK VAZQUEZ MD Jul 26, 2018 09:17
[2018-07-26] MEDS ORDERED: DIPHENHYDRAMINE 50 MG CAP PO ONE (10:00)
[2018-07-26] MEDS ORDERED: DIAZEPAM 5 MG TAB PO ONE (10:00)
--- NOTE | 2018-07-26 15:25 | RADRPT ---
Vent Rate: 68 bpm RR Interval: 0 msec VT Interval: 150 msec QRS Duration: 130 msec QT Interval: 418 msec QTC Interval: 444 msec P-R-T [place]: 48 - -77 - 60 degrees Normal sinus rhythm Left axis deviation Right bundle branch block Abnormal ECG Electronically Signed By: Ad Zendejas
--- NOTE | 2018-07-26 15:29 | DS ---
Date/Time of Note Date/Time of Note DATE: 07/26/18 TIME: 15:16 Discharge Summary Admission/Discharge Info Admit Date/Time Jul 25, 2018 at 06:38 Discharge Date/Time July 26, 2018 Discharge Diagnosis 1. Coronary artery disease with acute NSTEMI: -Status post left cath with Multivessel obstructive coronary artery disease involving a high-grade stenosis of the patient's mid right coronary artery, mid and distal lesions in the patient's LAD and a diffusely diseased circumflex branch -Patient was to have a PCI today but may require CABG if unable to open culprit lesions but family has requested transfer to [facility] - Continue aspirin, statin and heparin drip 2. DMII with hyperglycemia: Out of control -A1c at 14 - Sugars now stable, recommend to continue Lantus 34 units and NovoLog 12 units with meals, adjust as needed 3. Morbid obesity -Lifestyle changes 4. Hypertension -Resume home meds as tolerated Patient Condition: Fair Hospital Course Patient is a 72 yo female with known CAD, stent 10 years ago, DMII, hypertension, obesity presenting with chest pain, found to have NSTEMI. Patient did have a left cath which showed multivessel obstructive coronary disease involving a high-grade stenosis of the patient's mid right coronary artery, mid and distal lesions of the patient's LAD and diffusely decreased circumflex branch. Cardiology recommendation was PCI and if that was not successful then patient would require a bypass. Patient's family opted to be transferred to [facility] instead, complex case manager did arrange for transfer. Patient was stable for DC to [facility]. Home Meds Active Scripts Atorvastatin* (Atorvastatin*) 80 Mg Tablet, 80 MG PO HS, #60 TAB Prov:DRU OHARA 07/25/18 Aspirin (Aspirin) 81 Mg Chew, 81 MG PO DAILY, #60 TAB Prov:DRU OHARA 07/25/18 Reported Medications Glipizide* (Glipizide*) 10 Mg Tablet, 10 MG PO BID 07/23/18 Isosorbide Mononitrate* (Isosorbide Mononitrate*) 30 Mg Tab.er.24h, 30 MG PO DAILY 07/23/18 Doxepin Hcl* (Doxepin Hcl*) 10 Mg Capsule, 10 MG PO DAILY 07/23/18 Mirabegron (Myrbetriq) 50 Mg Tab.er.24h, 50 MG PO DAILY 07/23/18 Sitagliptin Phos/Metformin HCl (Janumet 50-1,000 mg Tablet) 1 Each Tablet, 1 TAB PO DAILY 07/23/18 Pregabalin* (Lyrica*) 100 Mg Capsule, 100 MG PO BID, CAP 07/23/18 Metoprolol Succinate* (Toprol XL*) 200 Mg Tab.sr.24h, 200 MG PO QAM 07/23/18 Insulin Aspart* (Novolog Insulin Pen*) 100 Unit/Ml Soln, 0 SC .SLIDING SCALE AC, EA 07/23/18 Insulin Detemir (Levemir Flextouch) 100 Unit/1 Ml Insuln.pen, 28-35 UNIT SQ BID, EA 07/23/18 Nitroglycerin* (Nitroglycerin* SL) 0.4 Mg Tab.subl, 0.4 MG SL Q5MIN PRN for CHEST PAIN, BOTTLE 07/23/18 Discontinued Reported Medications Isosorbide Mononitrate* (Imdur*) 120 Mg Tab.sr.24h 04/25/09 Glimepiride* (Amaryl*) 4 Mg Tablet 04/25/09 Ergocalciferol (Vitamin D) 50,000 Unit Capsule 04/25/09 Nitroglycerin (Nitroquick) 0.4 Mg Tab.subl 04/25/09 Valsartan* (Diovan*) 320 Mg Tablet 04/25/09 Metoprolol Succinate* (Toprol XL*) 25 Mg Tab.sr.24h 04/25/09 Atorvastatin (Lipitor) 20 Mg Tablet 04/25/09 Clopidogrel Bisulfate (Plavix) 75 Mg Tablet 04/25/09 Nortriptyline Hcl* (Nortriptyline Hcl*) 25 Mg Capsule 04/25/09 Duloxetine Hcl* (Cymbalta*) 60 Mg Capsule. 04/25/09 Pioglitazone Hcl-Metformin Hcl (Actoplus Met) 1 Tab Tablet 04/25/09 Discontinued Scripts Hydrocodone/Acetaminophen ([place] 10-325 Tablet) 1 Each Tablet, 1 TAB PO Q6H PRN for PAIN, #7 TAB Prov:ELZA CALVILLO 02/21/18 Follow-up Plan Follow-up with physicians at [facility] Primary Care Provider Not On Staff Doctor Time spent on discharge: > 30 minutes DRU OHARA Jul 26, 2018 15:29
== END 2018-07-26 17:11 | disposition short-term general hospital (02) | DRG 282 ==
LOC: E/R 16:50 → TEL 19:35 → OBSVTOIN 07-25 06:38 → TEL 07-25 10:16
PROVIDERS: ADMIT Internal Medicine; ATTEND Internal Medicine
PROC: B211YZZ Fluoroscopy of Multiple Coronary Arteries using Other Contrast (ICD-10-PCS; 2018-07-25)
PROC: B215YZZ Fluoroscopy of Left Heart using Other Contrast (ICD-10-PCS; 2018-07-25)
PROC: 4A023N7 Measurement of Cardiac Sampling and Pressure, Left Heart, Percutaneous Approach (ICD-10-PCS; principal; 2018-07-25 09:30)
DX: I21.4 Non-ST elevation (NSTEMI) myocardial infarction (principal); E11.65 Type 2 diabetes mellitus with hyperglycemia; E66.01 Morbid (severe) obesity due to excess calories; I25.10 Atherosclerotic heart disease of native coronary artery without angina pectoris; I10 Essential (primary) hypertension; E78.5 Hyperlipidemia, unspecified; F41.9 Anxiety disorder, unspecified; Z79.4 Long term (current) use of insulin; Z79.82 Long term (current) use of aspirin; Z68.36 Body mass index [BMI] 36.0-36.9, adult; Z71.3 Dietary counseling and surveillance; Z95.5 Presence of coronary angioplasty implant and graft; Z87.891 Personal history of nicotine dependence
CPT/HCPCS: 36415; 71045; 80048; 80053; 82962; 83036; 83735; 83880; 84478; 84484; 85025; 85378; 85610; 85730; 93005; 93306; 93458; 96374; 96375; G0378; C1887; J1644; J1815; J2250; J2270; J2405; J3010; J7030; Q9967